=== PATIENT | female | born 1945 | race Caucasian/White ===

== ENCOUNTER 2023-07-24 14:49 | Outpatient (RCR) | payer MEDICARE, OTHER, SELFPAY | END 2023-07-24 23:59 | disposition home or self-care (01) | LOC: RPT 14:49 | PROVIDERS: ATTENDING PHYSICIAN Specialist; FAMILY PHYSICIAN Internal Medicine | DX: Z47.1 Aftercare following joint replacement surgery (principal); Z73.6 Limitation of activities due to disability; M62.81 Muscle weakness (generalized); M25.512 Pain in left shoulder; Z96.612 Presence of left artificial shoulder joint | CPT/HCPCS: 97010; 97110; 97162 ==

== ENCOUNTER 2023-08-21 13:53 | Outpatient (RCR) | payer MEDICARE, OTHER, SELFPAY | END 2023-08-21 23:59 | disposition home or self-care (01) | LOC: RPT 13:53 | PROVIDERS: ATTENDING PHYSICIAN Specialist; FAMILY PHYSICIAN Internal Medicine | DX: Z47.1 Aftercare following joint replacement surgery (principal); Z73.6 Limitation of activities due to disability; M62.81 Muscle weakness (generalized); M25.512 Pain in left shoulder; Z96.612 Presence of left artificial shoulder joint | CPT/HCPCS: 97010; 97110; 97140 ==

== ENCOUNTER 2023-08-28 12:54 | Outpatient (RCR) | payer MEDICARE, OTHER, SELFPAY | END 2023-09-12 08:34 | disposition home or self-care (01) | LOC: RPT 12:54 | PROVIDERS: ATTENDING PHYSICIAN Specialist; FAMILY PHYSICIAN Internal Medicine | DX: Z47.1 Aftercare following joint replacement surgery (principal); Z96.612 Presence of left artificial shoulder joint; Z73.6 Limitation of activities due to disability | CPT/HCPCS: 97010; 97110 ==

== ENCOUNTER 2024-01-22 06:32 | Outpatient (RCR) | payer MEDICARE, OTHER, SELFPAY | END 2024-01-22 23:59 | disposition home or self-care (01) | LOC: RPT 06:32 | PROVIDERS: ATTENDING PHYSICIAN Physical Medicine & Rehabilitation; FAMILY PHYSICIAN Internal Medicine | DX: M54.16 Radiculopathy, lumbar region (principal); M62.81 Muscle weakness (generalized); R26.2 Difficulty in walking, not elsewhere classified | CPT/HCPCS: 97162 ==

== ENCOUNTER → 2024-02-05 08:56 | Outpatient (REF) | payer MEDICARE, OTHER, SELFPAY ==
[2024-02-05 09:27] LABS: % Basophils 0.9 % (0-2); % Eosinophils 3.1 % (0-6); % Immature Granulocytes 0.3 % (0-0.5); % Lymphocytes 21.4 % (20.5-51.1); % Monocytes 8.2 % (1.7-9.3); % Neutrophils 66.1 % (42.2-75.2); Absolute Basophils 0.1 10^3/uL (0-0.2); Absolute Eosinophils 0.2 10^3/uL (0-0.7); Absolute Lymphocytes 1.7 10^3/uL (1.2-3.4); Absolute Monocytes 0.6 10^3/uL (0.1-0.6); Absolute Neutrophils 5.2 10^3/uL (1.4-6.5); Hematocrit 37.9 % (37.0-47.0); Hemoglobin 12.5 g/dL (12.0-16.0); Mean Corpuscular Hgb 29.4 pg (27.0-31.0); Mean Corpuscular Volume 89.2 fL (81.0-99.0); Mean Platelet Volume 10.1 fL (7.4-10.4); Nucleated Red Blood Cells % 0 %; Platelet Count 242 10^3/uL (130-400); Red Blood Cell Count 4.25 10^6/uL (4.20-5.40); Red Cell Dist. Width 12.9 % (11.5-14.5); White Blood Cell Count 7.8 10^3/uL (4.8-10.8)
[2024-02-05 10:45] LABS: ALT (SGPT) 18 U/L (0-35); AST (SGOT) 23 U/L (14-36); Albumin 3.8 g/dl (3.5-5.0); Alkaline Phosphatase 79 U/L (38-126); Blood Urea Nitrogen 16 mg/dl (7-17); Calcium 9.9 mg/dl (8.4-10.2); Carbon Dioxide 31 mmol/L (22-30); Chloride 102 mmol/L (98-107); Glucose 105 mg/dl (70-99); HDL Cholesterol 40 mg/dl; LDL Cholesterol, Calculated 49 mg/dl; Potassium 4.6 mmol/L (3.5-5.1); Sodium 139 mmol/L (135-145); Total Cholesterol 109 mg/dl (50-199); Total Protein 6.2 g/dl (6.3-8.2); Triglyceride 100 mg/dl (10-149); Very Low Density Lipoprotein 20 mg/dl (0-30); eGFR > 60.00
[2024-02-05 14:24] LABS: Glycohemoglobin (HgbA1c) 6.4 % (4.0-5.6)
== END ==
LOC: REG 08:56
PROVIDERS: ATTENDING PHYSICIAN Family Medicine
DX: R42 Dizziness and giddiness (principal); R73.01 Impaired fasting glucose; E78.2 Mixed hyperlipidemia
CPT/HCPCS: 36415; 80053; 80061; 83036; 85025

== ENCOUNTER 2024-02-20 13:55 | Outpatient (RCR) | payer MEDICARE, OTHER, SELFPAY | END 2024-02-20 23:59 | disposition home or self-care (01) | LOC: RPT 13:55 | PROVIDERS: ATTENDING PHYSICIAN Physical Medicine & Rehabilitation; FAMILY PHYSICIAN Internal Medicine | DX: M54.16 Radiculopathy, lumbar region (principal); M62.81 Muscle weakness (generalized); R26.2 Difficulty in walking, not elsewhere classified; Z73.6 Limitation of activities due to disability | CPT/HCPCS: 97110; 97112; 97530 ==

== ENCOUNTER 2024-03-19 14:22 | Outpatient (RCR) | payer MEDICARE, OTHER, SELFPAY | END 2024-03-19 23:59 | disposition home or self-care (01) | LOC: RPT 14:22 | PROVIDERS: ATTENDING PHYSICIAN Physical Medicine & Rehabilitation; FAMILY PHYSICIAN Internal Medicine | DX: M54.16 Radiculopathy, lumbar region (principal); M62.81 Muscle weakness (generalized); R26.2 Difficulty in walking, not elsewhere classified; Z73.6 Limitation of activities due to disability | CPT/HCPCS: 97110; 97530 ==

== ENCOUNTER 2024-04-23 12:49 | Outpatient (RCR) | payer MEDICARE, OTHER, SELFPAY | END 2024-04-23 23:59 | disposition home or self-care (01) | LOC: RPT 12:49 | PROVIDERS: ATTENDING PHYSICIAN Physical Medicine & Rehabilitation | DX: M54.16 Radiculopathy, lumbar region (principal); M62.81 Muscle weakness (generalized); R26.2 Difficulty in walking, not elsewhere classified; Z73.6 Limitation of activities due to disability | CPT/HCPCS: 97110; 97530 ==

== ENCOUNTER → 2024-05-19 12:50 | Outpatient (REF) | payer MEDICARE, OTHER, SELFPAY | LOC: RCS 12:50 | PROVIDERS: ATTENDING PHYSICIAN Internal Medicine Cardiovascular Disease; FAMILY PHYSICIAN Family Medicine | DX: I42.9 Cardiomyopathy, unspecified (principal) | CPT/HCPCS: 93306 ==

== ENCOUNTER 2024-05-20 15:51 | Outpatient (RCR) | payer MEDICARE, OTHER, SELFPAY | END 2024-05-20 23:59 | disposition home or self-care (01) | LOC: RPT 15:51 | PROVIDERS: ATTENDING PHYSICIAN Physical Medicine & Rehabilitation | DX: M54.16 Radiculopathy, lumbar region (principal); M62.81 Muscle weakness (generalized); R26.2 Difficulty in walking, not elsewhere classified; Z73.6 Limitation of activities due to disability | CPT/HCPCS: 97110; 97530 ==

== ENCOUNTER 2024-06-11 13:52 | Outpatient (RCR) | payer MEDICARE, OTHER, SELFPAY | END 2024-06-12 09:24 | disposition home or self-care (01) | LOC: RPT 13:52 | PROVIDERS: ATTENDING PHYSICIAN Physical Medicine & Rehabilitation | DX: M54.16 Radiculopathy, lumbar region (principal); M62.81 Muscle weakness (generalized); R26.2 Difficulty in walking, not elsewhere classified; Z73.6 Limitation of activities due to disability | CPT/HCPCS: 97110; 97530 ==

== ENCOUNTER → 2024-10-29 09:56 | Outpatient (REF) | payer MEDICARE, OTHER, SELFPAY | LOC: HWWDC 09:56 | PROVIDERS: ATTENDING PHYSICIAN Family Medicine | DX: Z13.820 Encounter for screening for osteoporosis (principal); Z78.0 Asymptomatic menopausal state; Z12.31 Encounter for screening mammogram for malignant neoplasm of breast | CPT/HCPCS: 77063; 77067; 77080 ==

== ENCOUNTER → 2024-11-10 09:17 | Outpatient (REF) | payer MEDICARE, OTHER, SELFPAY ==
[2024-11-10 10:19] LABS: % Basophils 0.8 % (0-2); % Eosinophils 3.2 % (0-6); % Immature Granulocytes 0.3 % (0-0.5); % Lymphocytes 19.1 % (20.5-51.1); % Monocytes 7.5 % (1.7-9.3); % Neutrophils 69.1 % (42.2-75.2); Absolute Basophils 0.1 10^3/uL (0-0.2); Absolute Eosinophils 0.3 10^3/uL (0-0.7); Absolute Lymphocytes 1.5 10^3/uL (1.2-3.4); Absolute Monocytes 0.6 10^3/uL (0.1-0.6); Absolute Neutrophils 5.4 10^3/uL (1.4-6.5); Hematocrit 41.3 % (37.0-47.0); Hemoglobin 13.3 g/dL (12.0-16.0); Mean Corp Hgb Conc. 32.2 g/dL (33.0-37.0); Mean Corpuscular Hgb 29.4 pg (27.0-31.0); Mean Corpuscular Volume 91.2 fL (81.0-99.0); Mean Platelet Volume 9.9 fL (7.4-10.4); Nucleated Red Blood Cells % 0 %; Platelet Count 209 10^3/uL (130-400); Red Blood Cell Count 4.53 10^6/uL (4.20-5.40); Red Cell Dist. Width 13.2 % (11.5-14.5); White Blood Cell Count 7.9 10^3/uL (4.8-10.8)
[2024-11-10 10:50] LABS: ALT (SGPT) 19 U/L (0-35); AST (SGOT) 20 U/L (14-36); Albumin 3.9 g/dl (3.5-5.0); Alkaline Phosphatase 84 U/L (38-126); Blood Urea Nitrogen 16 mg/dl (7-17); Calcium 9.6 mg/dl (8.4-10.2); Carbon Dioxide 36 mmol/L (22-30); Chloride 103 mmol/L (98-107); Glucose 112 mg/dl (70-99); HDL Cholesterol 44 mg/dl; Iron 77 ug/dl (37-170); LDL Cholesterol, Calculated 38 mg/dl; Potassium 4.2 mmol/L (3.5-5.1); Sodium 142 mmol/L (135-145); Total Bilirubin 0.9 mg/dl (0.2-1.3); Total Cholesterol 103 mg/dl (50-199); Total Protein 6.8 g/dl (6.3-8.2); Triglyceride 106 mg/dl (10-149); Very Low Density Lipoprotein 21 mg/dl (0-30); eGFR > 60.00
[2024-11-10 11:01] LABS: Glycohemoglobin (HgbA1c) 6.6 % (4.0-5.6)
[2024-11-10 11:17] LABS: TSH Reflex To Free T4 1.33 uIU/ml (0.47-4.68)
[2024-11-12 05:23] LABS: Transferrin 238 mg/dL (200-360)
== END ==
LOC: REG 09:17
PROVIDERS: ATTENDING PHYSICIAN Psychiatry & Neurology Neurology; FAMILY PHYSICIAN Family Medicine
DX: G25.81 Restless legs syndrome (principal); R73.01 Impaired fasting glucose; E78.2 Mixed hyperlipidemia; R53.83 Other fatigue; Z13.29 Encounter for screening for other suspected endocrine disorder; E78.5 Hyperlipidemia, unspecified; E66.9 Obesity, unspecified
CPT/HCPCS: 36415; 80053; 80061; 83036; 83540; 84443; 84466; 85025

== ENCOUNTER 2024-12-17 15:38 | Outpatient (RCR) | payer MEDICARE, OTHER, SELFPAY | END 2024-12-17 23:59 | disposition home or self-care (01) | LOC: RPT 15:38 | PROVIDERS: ATTENDING PHYSICIAN Family Medicine | DX: M54.16 Radiculopathy, lumbar region (principal); R26.9 Unspecified abnormalities of gait and mobility; Z73.6 Limitation of activities due to disability | CPT/HCPCS: 97110; 97162; 97530 ==

== ENCOUNTER 2025-01-21 09:53 | Outpatient (RCR) | payer MEDICARE, OTHER, SELFPAY | END 2025-01-21 23:59 | disposition home or self-care (01) | LOC: RPT 09:53 | PROVIDERS: ATTENDING PHYSICIAN Family Medicine | DX: M54.16 Radiculopathy, lumbar region (principal); R26.9 Unspecified abnormalities of gait and mobility; Z73.6 Limitation of activities due to disability; R26.2 Difficulty in walking, not elsewhere classified | CPT/HCPCS: 97110; 97530 ==

== ENCOUNTER 2025-02-09 10:32 | Outpatient (RCR) | payer MEDICARE, OTHER, SELFPAY | END 2025-02-09 23:59 | disposition home or self-care (01) | LOC: RPT 10:32 | PROVIDERS: ATTENDING PHYSICIAN Family Medicine | DX: R26.9 Unspecified abnormalities of gait and mobility; Z73.6 Limitation of activities due to disability; M54.16 Radiculopathy, lumbar region; R26.2 Difficulty in walking, not elsewhere classified | CPT/HCPCS: 97110 ==

== ENCOUNTER 2025-04-20 23:55 | Emergency (ER) | payer MEDICARE, OTHER, SELFPAY ==
[2025-04-20 23:57] VITALS: BMI 26.8
--- NOTE | 2025-04-21 00:01 | ED.GENMED ---
History of Present Illness
General
Chief Complaint: Fall
Time Seen by Provider: 04/21/25 00:01
History of Present Illness
History of Present Illness:
FOCUSED PAST MEDICAL HISTORY
- A-fib on Eliquis
REVIEW OF OLD RECORDS
- I reviewed records, the patient is been receiving physical therapy for lumbar radiculopathy over this past year
Note:
CHIEF COMPLAINT(S)
Fall with subsequent pain in the leg.
HISTORY OF PRESENT ILLNESS
The patient is an 80-year-old female who presented after sustaining a fall. The fall occurred as a result of tripping over a rug in her home. She is currently on apixaban (Eliquis) and a low-dose aspirin regimen, which increases her risk of
bleeding. Following the fall, the patient reports significant pain in her leg, specifically when pressure is applied directly over the bone. There is notable bruising which is likely due to subcutaneous hemorrhage. The patient describes the pain as
moderate, noting that while she was able to stand initially, the pain worsened over time. The patient took acetaminophen and oxycodone, which she uses for restless leg syndrome. She denies any head injury or pain in the hip, abdomen, or chest after
the fall. The patient is noted to be in permanent atrial fibrillation and mentions a consideration for an ablation procedure in the past.
PAST MEDICAL AND SURIGICAL HISTORY
The patient has a history of atrial fibrillation.
MEDICATIONS
The patient is currently taking apixaban (Eliquis), low-dose aspirin, acetaminophen, and oxycodone.
PHYSICAL EXAM
General: Alert, no acute distress.
Skin: Warm, dry.
Head: Normocephalic, atraumatic. No evidence of craniofacial trauma
Neck: Supple, trachea midline.
Eye Ears, nose, mouth and throat: Oral mucosa moist.
Cardiovascular: Normal peripheral perfusion, No edema.
Respiratory: Respirations are non-labored.
Gastrointestinal: Abdomen nondistended
Back: Normal range of motion, Normal alignment.
Musculoskeletal: There is rather large area of hematoma distal to the knee anterolateral left leg, strong DP pulse, good distal perfusion, some mild mid shaft left tibia tenderness
Neurological: Alert and oriented to person, place, time, and situation, No focal neurological deficit observed.
Psychiatric: Cooperative, appropriate mood & affect.
PROBLEM LIST
Acute Problems:
- Fall with subsequent leg pain and bruising.
- Subcutaneous hemorrhage secondary to anticoagulation therapy.
Chronic Problems:
- Atrial fibrillation.
PLAN
1. Obtain an X-ray to assess for any potential bone damage in the leg.
2. Continue acetaminophen as needed for pain management.
3. Advise the patient to keep the leg elevated when possible to reduce swelling and pain.
4. Reassess after imaging to determine any further necessary interventions.
DIFFERENTIAL DIAGNOSIS
The Differential Diagnosis includes, in no particular order and is not limited to:
1. Soft tissue contusion
2. Fracture
3. Deep vein thrombosis
4. Compartment syndrome
5. Hematoma
6. Ligamentous injury
7. Muscle strain
8. Joint dislocation
9. Peripheral nerve injury
10. Stress fracture
RADIOLOGY
- X-ray shows DJD, soft tissue swelling, vascular calcification
UPDATE
-SUMMARY OF ENCOUNTER
The patient presented to the emergency department following a fall that resulted in significant leg pain and bruising. An X-ray was conducted, revealing vascular calcifications, soft tissue swelling, and mild to moderate degenerative joint disease.
Given the patient�s anticoagulant regimen, there was heightened concern for potential hemorrhagic complications, necessitating careful evaluation and management.
PLAN
1. The patient is advised to hold the next doses of apixaban (Eliquis) and aspirin to reduce the risk of further bleeding.
2. The patient is recommended to keep the leg elevated to help with swelling.
3. Pain is to be managed with acetaminophen as needed.
PATIENT EDUCATION AND COUNSELING
The patient was counseled on holding her anticoagulation therapy temporarily and monitoring for signs of increased swelling or pain. She was informed about the findings of degenerative joint disease on the X-ray and advised on appropriate mobility
support.
MEDICATION RECONCILIATION
- Prescription to hold apixaban (Eliquis) and aspirin temporarily.
MEDICAL DECISION MAKING
-Complexity of Data Reviewed: Chronic conditions affecting care such as atrial fibrillation and currently addressed conditions include subcutaneous hemorrhage secondary to anticoagulation therapy and acute leg pain. Differential diagnoses considered
include soft tissue contusion, fracture, deep vein thrombosis, compartment syndrome, hematoma, ligamentous injury, muscle strain, joint dislocation, peripheral nerve injury, and stress fracture.
-Data:
Category 1
The following testing was considered and performed: X-ray of the leg was done.
Category 2
My independent interpretation of the X-ray indicates vascular calcifications, soft tissue swelling, and mild to moderate degenerative joint disease.
-Risk: Consideration of admission/observation was undertaken, but given that the patient has several ambulatory assistance devices at home, she is considered safe for outpatient management with the advised precautions.
DIAGNOSIS
1. Subcutaneous hemorrhage secondary to anticoagulation therapy (ICD-10: R58).
2. Degenerative joint disease (ICD-10: M15.9).
3. Fall-related injury (ICD-10: W19.XXXA).
Past History
Past History
ED Past Medical History: Arrthythmia, CAD, CHF, GERD, HTN and Hypercholesterolemia
ED Past Surgical History: Cardiac
Social History
Tobacco: Non-smoker
Alcohol: Daily
Personal: Single
Living: alone
Employment: Retired
Family History
Family History: Hypertension
Phy Exam
Physical Exam
Physical Exam:
See HPI
Course
Orders/Labs/Results
Orders:
Orders
04/21/25 00:09
CR Leg Tibia/fibula Left 2 Vw Urgent
Comment:
Reason For Exam: trauma hematoma eliquis
Vital Signs
Initial and Last Documented VS:
Initial Vital Signs
Temp
36.5 C
04/21/25 00:00
Last Documented Vital Signs
Temp Pulse Resp BP Pulse Ox
36.5 C 103 16 124/100 97
04/21/25 00:00 04/21/25 00:08 04/21/25 00:08 04/21/25 00:08 04/21/25 00:08
*Pulse Oximetry
Patient hypoxic: no
*Critical Care Note
Total Time (30-74mins, 75-104mins- exclusive of procedures): Not Applicable
ED Attending Note
-
Portions of this chart may have been created with voice recognition software.� Occasional wrong word or��sound alike� substitutions may have occurred due to the inherent limitations of voice recognition software.
Discharge Plan
Departure
Patient Disposition: Home (Routine Discharge)
Date of Disposition: 04/21/25
Time of Disposition: 00:40
Patient with high blood pressure during this ER visit?: Yes
Discharge Problem:
Hematoma of left lower leg
Instructions: Preventing falls in adults, BLOOD PRESSURE, Hematoma
Prescriptions:
No Action
PreserVision AREDS-2 1 EACH capsule
1 cap PO BID
Patient Comments:
08/16/20 - pt attempted to take her medications but vomited right after
atorvastatin 40 MG tablet
40 mg PO HS
Patient Comments:
08/16/20 - pt attempted to take her medications but vomited right after
cholecalciferol (vitamin D3) 1,000 UNITS tablet
2,000 units PO HS
Eliquis 5 MG tablet
5 mg PO BID
Patient Comments:
08/16/20 - pt attempted to take her medications but vomited right after
cyanocobalamin (vitamin B-12) 1,000 MCG tablet
1,000 mcg PO DAILY
Patient Comments:
08/16/20 - pt attempted to take her medications but vomited right after
aspirin 81 MG tablet,delayed release (DR/EC)
81 mg PO DAILY
omeprazole magnesium [Prilosec OTC] 20 MG tablet,delayed release (DR/EC)
20 mg PO DAILY PRN (Reason: Gastrointestinal issue)
pyridoxine (vitamin B6) [Vitamin B-6] 100 mg Tablet
100 mg PO DAILY
magnesium 200 mg Tablet
400 mg PO QPM
metoprolol succinate 100 MG tablet extended release 24 hr
100 mg PO QPM
Digoxin [Lanoxin:] 125 MCG Tablet
125 mcg PO DAILY
loratadine 10 mg Tablet
10 mg PO DAILY PRN (Reason: Rhinitis)
Zyrtec 10 mg Capsule
10 mg PO DAILY PRN (Reason: Rhinitits)
pramipexole 0.125 mg Tablet
0.125 mg PO HS
mupirocin 2 % ointment
1 applic intranasal BID Qty: 1 0RF
docusate sodium 100 mg Capsule
100 mg PO BID Qty: 30 0RF
Eliquis 2.5 mg Tablet
2.5 mg PO BID Qty: 3 0RF
Rx Instructions:
Cut 5 mg tab in 06/25 (= 2.5 mg) and take twice daily from 05/11 PM to 05/12 PM.
Can resume 5 mg twice a day on 11 AM.
gabapentin 100 mg Capsule
200 mg PO TID Qty: 30 0RF
oxycodone [OxyContin] 10 mg Tablet,Oral Only,Ext.Rel.12 Hr
10 mg PO Q12 Qty: 15 0RF
Rx Instructions:
Take every 12 hours x5 days, then once daily x5 days, then STOP.
Dx acute on chronic pain.
sennosides [Senna Lax] 8.6 mg Tablet
17.2 mg PO BID Qty: 30 0RF
ondansetron HCl 4 mg tablet
4 mg PO Q6H PRN (Reason: nausea and vomiting) Qty: 30 0RF
prednisone 10 mg tablet
40 mg PO TAPER Qty: 20 0RF
Rx Instructions:
4 TABS X 2 DAYS, 3 TABS X 2 DAYS, 2 TABS X 2 DAYS, 1 TAB X 2 DAYS, THEN STOP
acetaminophen [Tylenol Extra Strength] 500 MG tablet
1,000 mg PO Q6H Qty: 0 0RF
Rx Instructions:
DO NOT exceed >4000 mg daily.
bumetanide 0.5 mg Tablet
0.5 - 1 mg PO DAILY PRN (Reason: edema) Qty: 0 0RF
Rx Instructions:
HOLD IF systolic blood pressure <130 while on Oxycodone and Oxycontin.
losartan 25 mg Tablet
25 mg PO DAILY Qty: 0 0RF
Rx Instructions:
HOLD IF systolic blood pressure <130 while on Oxycodone and Oxycontin.
cyclosporine [Restasis] 0.05 % Dropperette
1 drp BOTH EYES DAILYPRN PRN (Reason: dry eyes) Qty: 0 0RF
oxycodone 10 mg Tablet
5 - 10 mg PO Q4HPRN PRN (Reason: moderate-severe pain) Qty: 84 0RF
Patient Comments:
QID and increased also to 6x/day
Rx Instructions:
1/2 tab for moderate pain, 1 if severe.
Dx total joint.
Referrals:
Luis Daniel Watt Jr., DO [Family Provider, Internal Medicine]
Rodney Simmons MD [Active, Orthopedics]
Activity Restrictions/Additional Instructions:
I recommend to hold the Eliquis and aspirin tonight and tomorrow morning. Follow-up with your doctors. You currently have a normal strong pulse in your foot. I see no sign of fracture but the radiologist will read the x-ray tomorrow. You could
also follow-up with an orthopedist persist.
Interventions
Interventions:
*Risk Screen - Suicide Last Done: 04/21/25 00:08
*General Assessment Last Done: 04/21/25 00:09
*Neglect/Abuse Screening Last Done: 04/21/25 00:08
*ED- Fall Risk Assessment Last Done: 04/21/25 00:07
*ED COVID-19 Vaccine History Last Done: 04/21/25 00:07
*ED Influenza Vaccine History Last Done: 04/21/25 00:07
ED-Musculoskeletal Assessment Last Done: 04/21/25 00:10
ED- Neurological Assessment Last Done: 04/21/25 00:10
ED-Skin Assessment Last Done: 04/21/25 00:10
Discharge Date and Time
Print Language: SPANISH
[2025-04-21 00:08] VITALS: BP 124/100
== END 2025-04-21 01:11 | disposition home or self-care (01) ==
LOC: EMR 23:55
PROVIDERS: EMERGENCY PHYSICIAN Emergency Medicine; FAMILY PHYSICIAN Family Medicine
DX: S80.12XA Contusion of left lower leg, initial encounter (principal); W18.09XA Striking against other object with subsequent fall, initial encounter; Y92.009 Unspecified place in unspecified non-institutional (private) residence as the place of occurrence of the external cause; I48.91 Unspecified atrial fibrillation; I25.10 Atherosclerotic heart disease of native coronary artery without angina pectoris; I11.0 Hypertensive heart disease with heart failure; I50.9 Heart failure, unspecified; E78.00 Pure hypercholesterolemia, unspecified; G25.81 Restless legs syndrome; Z79.01 Long term (current) use of anticoagulants; Z82.49 Family history of ischemic heart disease and other diseases of the circulatory system
CPT/HCPCS: 99283; 73590

== ENCOUNTER → 2025-05-19 10:43 | Outpatient (REF) | payer MEDICARE, OTHER, SELFPAY | LOC: HWRAD 10:43 | PROVIDERS: ATTENDING PHYSICIAN Physician Assistant Surgical; FAMILY PHYSICIAN Family Medicine | DX: M25.552 Pain in left hip (principal) | CPT/HCPCS: 73700 ==

== ENCOUNTER 2025-05-21 16:08 | Inpatient (IN) | payer MEDICARE, OTHER, SELFPAY ==
[2025-05-21] VITALS (12 sets, daily range): BP systolic 97–148; BP diastolic 65–97
--- NOTE | 2025-05-21 13:25 | ED.GENMED ---
History of Present Illness
<JHONY Hartman - Last Filed: 05/21/25 14:48>
General
Chief Complaint: Musculo-Skeletal Complaint
Source: patient
Exam Limitations: none
Time Seen by Provider: 05/21/25 12:54
Nursing documentation reviewed up to this point in time: agreed with
History of Present Illness
History of Present Illness:
Patient is 80-year-old female igor presents to the ER for evaluation. Patient was initially seen April 21 secondary to fall and sustained a hematoma to her left leg. She is anticoagulated on Eliquis for A-fib. She sustained a hematoma to her
left leg but reports she has had continued pain and had an outpatient CAT scan of her left hip 2 days ago. I did review this report which showed an impacted fracture of the left femoral neck. She has been walking with a walker. When she had
outpatient CAT scan she called by orthopedics and instructed to stop her Eliquis. She has not taken Eliquis since Saturday. She has had wound care come sporadically to treat this left lateral leg hematoma.
She completed cephalexin yesterday. She denies any fever chills
Past History
<JHONY Hartman - Last Filed: 05/21/25 14:48>
Past History
ED Past Medical History: Arrthythmia, CAD, CHF, GERD, HTN and Hypercholesterolemia
ED Past Surgical History: Cardiac
Social History
Tobacco: Non-smoker
Alcohol: Daily
Personal: Single
Living: alone
Employment: Retired
Family History
Family History: Hypertension
Phy Exam
<JHONY Hartman - Last Filed: 05/21/25 14:48>
General Physical Exam
General Presentation: no apparent distress
General age: appears stated age
General Skin: warm and dry
General Habitus: elderly
General Mental: alert
General Hydration: appears well hydrated
Cardiovascular Exam
Cardiovascular Exam: irregularly irregular
Pulmonary Exam
Pulmonary Exam: lungs clear and no respiratory distress
Neurological Exam
Neurological Exam: alert and oriented x3
Musculoskeletal Exam
Musculoskeletal Exam: other (Strong pulses left lower extremity left lateral lower leg with open wound/hematoma mild surrounding erythema strong pulses pain with range of motion to left leg)
Skin Exam
Skin Exam: normal color and warm/dry
Psychiatric Exam
Psychiatric Exam: normal mood/affect
Course
<JHONY Hartman - Last Filed: 05/21/25 14:48>
Orders/Labs/Results
Orders:
Orders
05/21/25 13:37
Cardiac Monitoring- Treatment ONCE
IV Insert/Care/Rem.- Treatment PRN
0.9% Sodium Chloride 250 ml [Nss] 250 ml IV BOLUS
05/21/25 13:39
Electrocardiogram (*1) Stat
Reason for Study: Abdominal Pain
EKG- Treatment ONCE
05/21/25 13:40
Morphine Sulfate 2 mg IV NOW STA
05/21/25 13:41
Knee, Left 4 or More Views [CR Knee - Left 4 Or More View*] Urgent
Comment:
Reason For Exam: trauma pain
05/21/25 13:54
Complete Blood Count/With Diff Urgent
Comprehensive Metabolic Panel Urgent
05/21/25 14:25
Fentanyl Citrate/Pf [Sublimaze] 25 mcg IV [id number] PRN
HYDROmorphone [Dilaudid] 0.25 mg IV PACU-[id number] PRN
Morphine Sulfate 1 mg IV PACU-Q5MPRN PRN
Ondansetron Injectable [Zofran] 4 mg IV PACU-ONCEPRN PRN
Prochlorperazine [Compazine] 5 mg IV PACU-ONCEPRN PRN
Notify MD As Directed
Notify physician if: for SDS patients with known or suspected sleep obstructive sleep apnea, monitor in the
PACU.
Notify MD for any apneic/desaturation episodes
O2 Therapy [RESP] Urgent
Titrate/Wean O2 to maintain O2 sat greater than (%): 92
Special Instructions: -Provide supplemental oxygen to achieve O2 sat of 92% or greater.
-After 15 min, may wean O2 and discontinue if patient is able to maintain O2 sat of 92%
or greater during recovery period.
If patient is a discharge home, without oxygen therapy, notify anestheiologist if
unable to maintain O2 SAT of 92% or greater on room air for MD clearance.
05/21/25 14:26
Type And Crossmatch [Type+Screen] Urgent
05/21/25 14:30
Normosol (Mult Electrolytes) [Normosol-R/Plasmalyte-A] 1,000 ml IV PER PROTOCOL
Abnormal Lab Results
05/21/25
13:54
RBC 3.54 L 10^6/uL
(4.20-5.40)
Hgb 10.3 L g/dL
(12.0-16.0)
Hct 32.4 L %
(37.0-47.0)
MCHC 31.8 L g/dL
(33.0-37.0)
Lymphocytes % 16.3 L %
(20.5-51.1)
Sodium 132 L mmol/L
(135-145)
Carbon Dioxide 34 H mmol/L
(22-30)
BUN 20 H mg/dl
(7-17)
Glucose 115 H mg/dl
(70-99)
05/21/25 13:54
05/21/25 13:54
Vital Signs
Initial and Last Documented VS:
Initial Vital Signs
Temp Pulse Resp BP Pulse Ox
97.4 F 75 16 97/65 99
05/21/25 10:54 05/21/25 10:54 05/21/25 10:54 05/21/25 10:54 05/21/25 10:54
Last Documented Vital Signs
Temp Pulse Resp BP Pulse Ox
97.4 F 87 11 127/97 95
05/21/25 10:54 05/21/25 14:00 05/21/25 14:00 05/21/25 14:00 05/21/25 14:00
Press Cleaner consulted with Physician
Press Cleaner consulted with physician?: Yes
Name of Physician Consulted: lindsay
<Dolores Velasco MD - Last Filed: 05/21/25 14:32>
Orders/Labs/Results
Orders:
Orders
05/21/25 13:37
Cardiac Monitoring- Treatment ONCE
IV Insert/Care/Rem.- Treatment PRN
0.9% Sodium Chloride 250 ml [Nss] 250 ml IV BOLUS
05/21/25 13:39
Electrocardiogram (*1) Stat
Reason for Study: Abdominal Pain
EKG- Treatment ONCE
05/21/25 13:40
Morphine Sulfate 2 mg IV NOW STA
05/21/25 13:41
Knee, Left 4 or More Views [CR Knee - Left 4 Or More View*] Urgent
Comment:
Reason For Exam: trauma pain
05/21/25 13:54
Complete Blood Count/With Diff Urgent
Comprehensive Metabolic Panel Urgent
05/21/25 14:25
Fentanyl Citrate/Pf [Sublimaze] 25 mcg IV [id number] PRN
HYDROmorphone [Dilaudid] 0.25 mg IV PACU-Q5MPRN PRN
Morphine Sulfate 1 mg IV PACU-Q5MPRN PRN
Ondansetron Injectable [Zofran] 4 mg IV PACU-ONCEPRN PRN
Prochlorperazine [Compazine] 5 mg IV PACU-ONCEPRN PRN
Notify MD As Directed
Notify physician if: for SDS patients with known or suspected sleep obstructive sleep apnea, monitor in the
PACU.
Notify MD for any apneic/desaturation episodes
O2 Therapy [RESP] Urgent
Titrate/Wean O2 to maintain O2 sat greater than (%): 92
Special Instructions: -Provide supplemental oxygen to achieve O2 sat of 92% or greater.
-After 15 min, may wean O2 and discontinue if patient is able to maintain O2 sat of 92%
or greater during recovery period.
If patient is a discharge home, without oxygen therapy, notify anestheiologist if
unable to maintain O2 SAT of 92% or greater on room air for MD clearance.
05/21/25 14:26
Type And Crossmatch [Type+Screen] Urgent
05/21/25 14:30
Normosol (Mult Electrolytes) [Normosol-R/Plasmalyte-A] 1,000 ml IV PER PROTOCOL
Abnormal Lab Results
05/21/25
13:54
RBC 3.54 L 10^6/uL
(4.20-5.40)
Hgb 10.3 L g/dL
(12.0-16.0)
Hct 32.4 L %
(37.0-47.0)
MCHC 31.8 L g/dL
(33.0-37.0)
Lymphocytes % 16.3 L %
(20.5-51.1)
Sodium 132 L mmol/L
(135-145)
Carbon Dioxide 34 H mmol/L
(22-30)
BUN 20 H mg/dl
(7-17)
Glucose 115 H mg/dl
(70-99)
05/21/25 13:54
05/21/25 13:54
Vital Signs
Initial and Last Documented VS:
Initial Vital Signs
Temp Pulse Resp BP Pulse Ox
97.4 F 75 16 97/65 99
05/21/25 10:54 05/21/25 10:54 05/21/25 10:54 05/21/25 10:54 05/21/25 10:54
Last Documented Vital Signs
Temp Pulse Resp BP Pulse Ox
97.4 F 87 11 127/97 95
05/21/25 10:54 05/21/25 14:00 05/21/25 14:00 05/21/25 14:00 05/21/25 14:00
<JHONY Hartman - Last Filed: 05/21/25 14:48>
MDM/Problems Addressed
Differential Diagnosis Includes:
not limited to: hip fracture, hematoma
MDM/Problems Addressed:
Patient is a 80-year-old female who fell April 21 has known left lateral leg hematoma on Eliquis. She had outpatient hip CT which showed a left femoral neck fracture. Orthopedic Dr. Simmons made aware. He is planning on taking patient to the OR
today. Patient stopped Eliquis on Saturday 2 days ago. She has an open wound which was a hematoma to her left lateral leg. She recently completed Keflex yesterday. Her left lower leg is mildly swollen mildly red however no fever normal white
count we will hold off on any additional antibiotics. Patient mid to the hospital service. Patient was medicated for pain
Chronic conditions affecting care:
A-fib on Eliquis
<JHONY Hartman - Last Filed: 05/21/25 14:48>
*Radiology
Radiology exam reviewed: radiology read reviewed (Outpatient CAT scan reviewed by myself)
*Pulse Oximetry
SaO2: 99
Oxygen Mode of Delivery: Room air
Patient hypoxic: no
*EKG
Interpreted by ED Provider?: Yes
Heart Rate: 80
Rate: normal
Rhythm: a-fib
Ischemia: non-specific ST changes
*Critical Care Note
Total Time (30-74mins, 75-104mins- exclusive of procedures): Not Applicable
<JHONY Hartman - Last Filed: 05/21/25 14:48>
Patient Management
Discussion with other providers: Dental Receptionist (ortho DR Simmons )
ED Attending Note
<JHONY Hartman - Last Filed: 05/21/25 14:48>
-
Portions of this chart may have been created with voice recognition software.� Occasional wrong word or��sound alike� substitutions may have occurred due to the inherent limitations of voice recognition software.
<Dolores Velasco MD - Last Filed: 05/21/25 14:32>
ED Attending Note
Patient seen and examined by attending physician: Yes
I performed the substantive portion of visit, reviewed & personally made and approve the management plan that is documented in note by myself or TRAVIS.: Yes
ED Attending Note:
80-year-old female who suffered a fall recently, continues to report left-sided hip pain and had an outpatient CAT scan consistent with hip fracture. Of note, patient also suffered a large hematoma to the lateral aspect of the lower leg on the
left, this has since ruptured and she has a sustained open oozing area with mild surrounding erythema. She has finished recent antibiotics. Ortho has been consulted for management of hip fracture. Pain is well-controlled here in the ED.
Discharge Plan
Departure
Patient Disposition: Admit
Date of Disposition: 05/21/25
Time of Disposition: 14:47
Admit to: Med/Surg
Admit to doctor: hospitalist
Presentation/result/management discussed w/ accepting MD/DO: Hospitalist
Patient with high blood pressure during this ER visit?: Yes
Condition: Fair
Covid-19: Not Applicable
Discharge Problem:
left femoral neck fracture, open wound left lower leg
Prescriptions:
No Action
PreserVision AREDS-2 1 EACH capsule
1 cap PO BID
Patient Comments:
08/16/20 - pt attempted to take her medications but vomited right after
atorvastatin 40 MG tablet
40 mg PO HS
Patient Comments:
08/16/20 - pt attempted to take her medications but vomited right after
cholecalciferol (vitamin D3) 1,000 UNITS tablet
2,000 units PO HS
Eliquis 5 MG tablet
5 mg PO BID
Patient Comments:
08/16/20 - pt attempted to take her medications but vomited right after
cyanocobalamin (vitamin B-12) 1,000 MCG tablet
1,000 mcg PO DAILY
Patient Comments:
08/16/20 - pt attempted to take her medications but vomited right after
aspirin 81 MG tablet,delayed release (DR/EC)
81 mg PO DAILY
omeprazole magnesium [Prilosec OTC] 20 MG tablet,delayed release (DR/EC)
20 mg PO DAILY PRN (Reason: Gastrointestinal issue)
pyridoxine (vitamin B6) [Vitamin B-6] 100 mg Tablet
100 mg PO DAILY
magnesium 200 mg Tablet
400 mg PO QPM
metoprolol succinate 100 MG tablet extended release 24 hr
100 mg PO QPM
Digoxin [Lanoxin:] 125 MCG Tablet
125 mcg PO DAILY
loratadine 10 mg Tablet
10 mg PO DAILY PRN (Reason: Rhinitis)
Zyrtec 10 mg Capsule
10 mg PO DAILY PRN (Reason: Rhinitits)
pramipexole 0.125 mg Tablet
0.125 mg PO HS
mupirocin 2 % ointment
1 applic intranasal BID Qty: 1 0RF
docusate sodium 100 mg Capsule
100 mg PO BID Qty: 30 0RF
Eliquis 2.5 mg Tablet
2.5 mg PO BID Qty: 3 0RF
Rx Instructions:
Cut 5 mg tab in 06/25 (= 2.5 mg) and take twice daily from 05/11 PM to 05/12 PM.
Can resume 5 mg twice a day on 05/13 AM.
gabapentin 100 mg Capsule
200 mg PO TID Qty: 30 0RF
oxycodone [OxyContin] 10 mg Tablet,Oral Only,Ext.Rel.12 Hr
10 mg PO Q12 Qty: 15 0RF
Rx Instructions:
Take every 12 hours x5 days, then once daily x5 days, then STOP.
Dx acute on chronic pain.
sennosides [Senna Lax] 8.6 mg Tablet
17.2 mg PO BID Qty: 30 0RF
ondansetron HCl 4 mg tablet
4 mg PO Q6H PRN (Reason: nausea and vomiting) Qty: 30 0RF
prednisone 10 mg tablet
40 mg PO TAPER Qty: 20 0RF
Rx Instructions:
4 TABS X 2 DAYS, 3 TABS X 2 DAYS, 2 TABS X 2 DAYS, 1 TAB X 2 DAYS, THEN STOP
acetaminophen [Tylenol Extra Strength] 500 MG tablet
1,000 mg PO Q6H Qty: 0 0RF
Rx Instructions:
DO NOT exceed >4000 mg daily.
bumetanide 0.5 mg Tablet
0.5 - 1 mg PO DAILY PRN (Reason: edema) Qty: 0 0RF
Rx Instructions:
HOLD IF systolic blood pressure <130 while on Oxycodone and Oxycontin.
losartan 25 mg Tablet
25 mg PO DAILY Qty: 0 0RF
Rx Instructions:
HOLD IF systolic blood pressure <130 while on Oxycodone and Oxycontin.
cyclosporine [Restasis] 0.05 % Dropperette
1 drp BOTH EYES DAILYPRN PRN (Reason: dry eyes) Qty: 0 0RF
oxycodone 10 mg Tablet
5 - 10 mg PO Q4HPRN PRN (Reason: moderate-severe pain) Qty: 84 0RF
Patient Comments:
QID and increased also to 6x/day
Rx Instructions:
1/2 tab for moderate pain, 1 if severe.
Dx total joint.
Referrals:
Luis Daniel Watt Jr., DO [Family Provider, Internal Medicine]
Interventions
Interventions:
*Risk Screen - Suicide Last Done: 05/21/25 10:54
*General Assessment Last Done: 05/21/25 10:54
*ED- Fall Risk Assessment Last Done: 05/21/25 10:54
ED-Musculoskeletal Assessment Last Done: 05/21/25 12:44
Discharge Date and Time
Print Language: HEBREW
[2025-05-21] MEDS: MORPHINE SULFATE 2 MG IV (13:55)
[2025-05-21] MEDS: NSS 250 IV (13:56)
[2025-05-21 13:59] LABS: Hematocrit 32.4 % (37.0-47.0); Hemoglobin 10.3 g/dL (12.0-16.0); Mean Corp Hgb Conc. 31.8 g/dL (33.0-37.0); Mean Corpuscular Volume 91.5 fL (81.0-99.0); Nucleated Red Blood Cells % 0 %; Platelet Count 328 10^3/uL (130-400); Red Cell Dist. Width 14.0 % (11.5-14.5)
[2025-05-21 14:15] LABS: ALT (SGPT) 16 U/L (0-35); AST (SGOT) 20 U/L (14-36); Albumin 3.5 g/dl (3.5-5.0); Alkaline Phosphatase 73 U/L (38-126); Blood Urea Nitrogen 20 mg/dl (7-17); Calcium 9.0 mg/dl (8.4-10.2); Carbon Dioxide 34 mmol/L (22-30); Chloride 98 mmol/L (98-107); Glucose 115 mg/dl (70-99); Potassium 4.7 mmol/L (3.5-5.1); Sodium 132 mmol/L (135-145); Total Protein 6.5 g/dl (6.3-8.2); eGFR > 60.00
--- NOTE | 2025-05-21 15:45 | HPS.HSE ---
Family Physician
-
Family Physician: Luis Daniel Watt Jr.
Chief Complaint
-
left calf pain
History of Present Illness
80-year-old female past medical history of osteoarthritis, hypertension, hyperlipidemia, multivessel CAD status post PCI of LAD, paroxysmal atrial fibrillation/atrial flutter on Eliquis, ischemic cardiomyopathy, HFpEF, mild to moderate mitral
regurgitation, mild tricuspid regurgitation, obstructive sleep apnea on CPAP, GERD, fatty liver disease, left renal cyst, migraines, vertigo, peripheral neuropathy, restless leg syndrome, multilevel degenerative disease, overactive bladder, melanoma
right shoulder, macular degeneration, retinal detachment status post surgical correction, osteopenia, dry eyes, depression, prediabetes, alcohol use disorder, presenting with continued pain of her left leg. She was initially seen on April 21
secondary to fall and sustained a hematoma of the left leg with a wound with drainage. She was treated with Keflex. She had outpatient CT scan which showed left femoral neck fracture 2 days ago. Patient stopped taking Eliquis 2 days ago.
She also developed pain in her left hip afterwards.
She denies any chest pain or shortness of breath.
She denies alcohol use or smoking.
Medical History
Past Medical History
Past Medical History: Reports Other (osteoarthritis, hypertension, hyperlipidemia, multivessel CAD status post PCI of LAD, paroxysmal atrial fibrillation/atrial flutter on Eliquis, ischemic cardiomyopathy, HFpEF, mild to moderate mitral
regurgitation, mild tricuspid regurgitation, obstructive sleep apnea on CPAP, GERD, fatty liver dise)
Past Surgical History: Reports None
Social History
Tobacco: Non-smoker
Alcohol: None
Drug: None
Family History
Family History: Not pertinent
Allergies / Home Medications
Allergies reflects when Allergies were last updated in [facility].
Home Medications with original date entered in [facility]
Allergy/Medication List:
Allergies
Allergy/AdvReac Type Severity Reaction Status Date / Time
adhesive Allergy itching Verified 05/21/25 11:43
and
swelling
amlodipine (From Norvasc) Allergy Ankle Verified 05/21/25 11:43
Swelling
bacitracin (From Neosporin Allergy Swelling, Verified 05/21/25 11:43
([id number])) Itching,
Redness
empagliflozin (From Allergy Hard Verified 05/21/25 11:43
Jardiance) Swelling
lisinopril Allergy Rash Verified 05/21/25 11:43
neomycin (From Neosporin Allergy Swelling, Verified 05/21/25 11:43
([id number])) Itching,
Redness
polymyxin B (From Neosporin Allergy Swelling, Verified 05/21/25 11:43
([id number])) Itching,
Redness
Sulfa (Sulfonamide Allergy Swelling, Verified 05/21/25 11:43
Antibiotics) Itching,
Redness
Home Medications
vit C 250 mg-vit E 90 mg-zinc 40 mg-copper 1 [id number] capsule (PreserVision AREDS-2) 1 cap PO BID Supplement 04/03/17
atorvastatin 40 mg tablet 40 mg PO HS High cholesterol 02/25/20
cholecalciferol (vitamin D3) 25 mcg (1,000 unit) tablet 2,000 units PO HS Supplement/Bone health 02/25/20
cyanocobalamin (vitamin B-12) 1,000 mcg tablet 2,500 mcg PO DAILY Supplement 08/16/20
aspirin 81 mg tablet,delayed release 81 mg PO DAILY Blood clot prevention/tx 11/26/21
omeprazole magnesium 20 mg tablet,delayed release (Prilosec OTC) 20 mg PO DAILY Gastrointestinal issue 11/26/21
magnesium 200 mg tablet 400 mg PO QPM Supplement 04/11/23
metoprolol succinate 100 mg tablet,extended release 24 hr 100 mg PO QPM Blood Pressure 04/11/23
pyridoxine (vitamin B6) 100 mg tablet (Vitamin B-6) 100 mg PO DAILY Supplement 04/11/23
acetaminophen 500 mg tablet (Tylenol Extra Strength) 1,000 mg (2 x 500 mg) PO Q6H #0 tabs 05/10/23
apixaban 5 mg tablet (Eliquis) 5 mg PO BID Blood Clot Prevention/Tx 05/21/25
bumetanide 0.5 mg tablet 1 mg PO DAILY PRN edema 05/21/25
cetirizine 10 mg tablet (Zyrtec) 10 mg PO DAILY PRN itching/allergies 05/21/25
digoxin 125 mcg (0.125 mg) tablet 125 mcg PO DAILY 05/21/25
metformin 500 mg tablet 500 mg PO QPM Diabetes 05/21/25
oxycodone 10 mg tablet 10 mg PO Q6 restless leg syndrome 05/21/25
sennosides 8.6 mg tablet (Senna Lax) 17.2 mg PO DAILY 05/21/25
Review of Systems
-
History Source: Patient
A 12 point ROS was completed and negative except as noted: Yes
Constitutional: Reports No Symptoms
EENT: Reports No Symptoms
Respiratory: Reports No Symptoms
Cardiac: Reports No Symptoms
Abdomen/GI: Reports No Symptoms
: Reports No Symptoms
Musculoskeletal: Reports No Symptoms
Skin: Reports No Symptoms
Neurological: Reports No Symptoms
Endocrine: Reports No Symptoms
Hematologic/Lymphatic: Reports No Symptoms
Psych: Reports No Symptoms
Physical Exam
Vital Signs
Vital Signs
Temp Pulse Resp BP Pulse Ox
97.4 F 87 11 127/97 95
05/21/25 10:54 05/21/25 14:00 05/21/25 14:00 05/21/25 14:00 05/21/25 14:00
Physical Exam
General: Well Developed, Well Nourished and No Apparent Distress
HEENT: NormoCephalic, Moist mucous membranes and Atraumatic
Respiratory: Clear
Cardiac: S1/S2 and Regular Rhythm; No Murmur or Rub
GI: Soft, Non Tender, Non Distended and Normal Bowel Sounds; No Organomegaly
Rectal: Deferred by Provider
Musculoskeletal: No Clubbing, No Cyanosis and No Edema
Skin: No Rash
Neuro: Nonfocal/grossly intact
Laboratory Results
-
05/21/25 13:54
05/21/25 13:54
Laboratory Results
Total Bilirubin 0.7 mg/dl (0.2-1.3) 05/21/25 13:54
AST 20 U/L (14-36) 05/21/25 13:54
ALT 16 U/L (0-35) 05/21/25 13:54
Alkaline Phosphatase 73 U/L (38-126) 05/21/25 13:54
Data Reviewed
-
Lab Data: Labs Reviewed by me
Old Records: Reviewed
Impression/Plan
-
IMPRESSION:
PLAN:
# Recent hematoma of left lower extremity with wound
# Left femoral neck impacted fracture after a fall
- Continue to hold Eliquis
-Ortho consulted and planning for operating room today
-N.p.o.
- Patient completed Keflex, no further antibiotic
-Continue Tylenol, oxycodone
- Dilaudid for breakthrough pain
- Wound care consulted
- Check left ankle x-ray due to pain
Osteoarthritis
Essential hypertension
- Continue losartan
Hyperlipidemia
Multivessel CAD status post PCI of LAD
- Continue aspirin, statin
Paroxysmal atrial fibrillation/atrial flutter
- Hold Eliquis
- Continue digoxin
- Continue metoprolol
Ischemic cardiomyopathy/HFpEF
- Continue Bumex
Mild to moderate mitral regurgitation
Mild tricuspid regurgitation
Obstructive sleep apnea
- On CPAP
GERD
- Continue omeprazole
Fatty liver disease
Left renal cyst
History of migraines
History of vertigo
Peripheral neuropathy
- Continue pramipexole, gabapentin,
Restless leg syndrome
Multilevel degenerative disease
Overactive bladder
Melanoma right shoulder
Macular degeneration
Retinal detachment status postsurgical correction
Osteopenia
Dry eyes
Depression
Prediabetes
- Hold metformin
History of former alcohol use disorder
Full code
DVT prophylaxis�SCDs
N.p.o.
--- NOTE | 2025-05-21 16:05 | EDCM ---
Reviewed chart and met with pt bedside in ED. Pt lives alone with her dog in 1 story home, [address].
Independent in ADLs, personal care and ambulation at baseline. Has been using RW since fall on April 20. Also has cane, WC, commode, shower chair, grab bars in shower and around toilet.
Current with [facility], she also hired [employer], [employer] was scheduled to come daily but they were having trouble finding daily aides.
Pt has restless leg syndrome, follow with Dr Membreno in Neurology and has a planning specialist who prescribes Oxycodone for her restless legs.
Pt does not have local family, relies on friends and neighbors to assist her and provide transportation.
Confirms prescription coverage.
[facility].
Pt told me she will be having surgery either later today or tomorrow.
PCP: Blair Watt
Pharmacy: [facility]
CM will continue to follow for all discharge planning needs.
[2025-05-21 16:42] LABS: Glucose - Point of Care 90 mg/dl (70-99)
[2025-05-21] MEDS: DILAUDID 0.25 MG IV ×4 (19:19→20:01)
--- NOTE | 2025-05-21 19:24 | W.IMMPOSTOP ---
Surgical Immed Post Op Note
-
Primary Surgeon: Rodney Simmons MD
Assisting Surgeon:
Pre-op Diagnosis: left femoral neck fracture
Post-op Diagnosis: left femoral neck fracture
Procedure Performed: internal fixation left femoral neck
Anesthesia Type: general
Specimen / Cultures: none
Estimated Blood Loss: 25mL
Complications: none apparent
Operative Findings: impacted femoral neck fracture
Implants: Elena 6.5mm cannulated partially threaded screws X3
Operative dictation #: [id number]
[2025-05-21] MEDS: TOPROL XL 100 MG PO (22:27)
[2025-05-21] MEDS: COLACE 100 MG PO (22:28)
[2025-05-21] MEDS: LIPITOR 40 MG PO (22:28)
[2025-05-21] MEDS: OCUVITE SOFTGEL 1 CAP PO (22:28)
[2025-05-21] MEDS: MAGNESIUM OXIDE 400 MG PO (22:28)
[2025-05-21] MEDS: VITAMIN D3 (cholecalciferol) 50 MCG PO (22:29)
[2025-05-21] MEDS: ROXICODONE 10 MG PO (22:30)
[2025-05-21] MEDS: TYLENOL 650 MG PO (22:30)
[2025-05-22] VITALS (12 sets, daily range): BP systolic 84–131; BP diastolic 42–79; PULSE 71–90; O2SAT 99
[2025-05-22] MEDS: TYLENOL 650 MG PO ×2 (02:30→09:16)
[2025-05-22] MEDS: ANCEF 5 IV ×2 (02:30→11:14)
[2025-05-22] MEDS: ROXICODONE 10 MG PO ×4 (02:30→20:46)
[2025-05-22] MEDS: FLUSH (NSS) 2 FLUSH IV ×2 (02:31→06:30)
[2025-05-22] MEDS: DILAUDID 0.25 MG IV ×3 (03:34→06:30)
[2025-05-22] MEDS: FLUSH (NSS) 1 FLUSH IV (05:33)
[2025-05-22 07:29] LABS: Hematocrit 31.9 % (37.0-47.0); Hemoglobin 10.1 g/dL (12.0-16.0); Mean Corp Hgb Conc. 31.7 g/dL (33.0-37.0); Mean Corpuscular Volume 90.6 fL (81.0-99.0); Nucleated Red Blood Cells % 0 %; Platelet Count 324 10^3/uL (130-400); Red Cell Dist. Width 14.0 % (11.5-14.5)
[2025-05-22 07:42] LABS: INR 1.22; PT 15.6 Sec (11.4-14.6)
[2025-05-22 07:43] LABS: APTT 30.7 Sec (23.4-35.0)
[2025-05-22 08:04] LABS: ALT (SGPT) 15 U/L (0-35); AST (SGOT) 20 U/L (14-36); Albumin 3.0 g/dl (3.5-5.0); Alkaline Phosphatase 82 U/L (38-126); Blood Urea Nitrogen 19 mg/dl (7-17); Calcium 8.5 mg/dl (8.4-10.2); Carbon Dioxide 32 mmol/L (22-30); Chloride 97 mmol/L (98-107); Estimated Creatinine Clearance 74 ml/min; Glucose 153 mg/dl (70-99); Potassium 4.9 mmol/L (3.5-5.1); Sodium 131 mmol/L (135-145); Total Protein 5.8 g/dl (6.3-8.2); eGFR > 60.00
[2025-05-22] MEDS: VITAMIN B-6 100 MG PO (08:46)
[2025-05-22] MEDS: PROTONIX 40 MG PO (08:46)
[2025-05-22] MEDS: VITAMIN B-12 2500 MCG PO (08:46)
[2025-05-22] MEDS: SENOKOT 17.2 MG PO (08:46)
[2025-05-22] MEDS: OCUVITE SOFTGEL 1 CAP PO ×2 (08:46→20:46)
[2025-05-22] MEDS: ASPIR LOW (ENTERIC COATED) 81 MG PO (08:46)
[2025-05-22] MEDS: COLACE 100 MG PO ×2 (08:46→20:47)
--- NOTE | 2025-05-22 08:50 | W.PN.HOSP.TC ---
Addendum entered and electronically signed by Ellen De Leon MD 05/22/25 16:12:
SBP 90's, I'll give a small fluid bolus and monitor; 1/2 dose Metop this evening
Original Note:
Today's Communication/Plan
-
pain management (see below)
wound care
PT/OT
appreciate Ortho
Assessment / Plan
Assessment / Plan
MS. Janie Goodrich is a 80 yo woman with hx essential HTN, HLD, CAD s/p PCI, paroxysmal afib/flutter on Eliquis, HFpEF, mild to moderate MR, ER visit 04/21 for left leg pain post fall treated for hematoma (held AC briefly) with outpatient CT
showing left femoral neck fracture. Patient stopped taking Eliquis 2 days ago.
Recent hematoma of left lower extremity with wound
Left femoral neck impacted fracture after a fall
- Continue to hold Eliquis
- appreciate Ortho, s/p internal fixation left femoral neck 05/21
- Patient completed Keflex, no further antibiotic
- Continue Tylenol, oxycodone
- Dilaudid for breakthrough pain
- PT/OT
- MIXER OPERATOR RAW SALT Eliquis resumed
Chronic pain from restless leg syndrome
Opiate Dependence
-patient is on Oxycodone 10mg q 6 hour standing at home
-she has post-op pain - will increase standing dose to 15mg q 6 for the first several days for better pain control
-additional Oxy 5 PRN moderate pain; IV dilaudid PRN severe pain
Left munoz hematoma with residual open wound
-continue prior wound care as noted
-wound care consult in
Essential hypertension
- Continue losartan
Hyperlipidemia
Multivessel CAD status post PCI of LAD
- Continue aspirin, statin
Paroxysmal atrial fibrillation/atrial flutter
- Hold Eliquis
- Continue digoxin
- Continue metoprolol
Ischemic cardiomyopathy/HFpEF
- Continue Bumex
Mild to moderate mitral regurgitation
Mild tricuspid regurgitation
Obstructive sleep apnea
- On CPAP
GERD
- Continue omeprazole
Peripheral neuropathy
- Continue pramipexole, gabapentin,
Prediabetes
- Hold metformin
History of former alcohol use disorder
Full code
DVT prophylaxis� Eliquis
51 minutes spent on patient care
Anticipated Discharge: 24 - 48 hours
Subjective/Interval History
-
Date of Service: May 22, 2025
significant left leg pain overnight
she is opiate dependent
Objective Data
-
Labs:
Laboratory Results
05/22/25
07:04
WBC 9.5
Hgb 10.1 L
Hct 31.9 L
Plt Count 324
PT 15.6 H
INR 1.22
APTT 30.7
Sodium 131 L
Potassium 4.9
Chloride 97 L
Carbon Dioxide 32 H
BUN 19 H
Creatinine 0.6
Glucose 153 H
Calcium 8.5
Total Bilirubin 0.6
AST 20
ALT 15
Alkaline Phosphatase 82
Vital Signs:
Vital Signs
Temp Pulse Resp BP Pulse Ox
97.8 F 102 16 121/79 98
05/22/25 07:00 05/22/25 07:00 05/22/25 07:00 05/22/25 07:00 05/22/25 07:00
I&O
05/21/25 05/22/25 05/23/25
06:59 06:59 06:59
Intake Total 580 / 580
Output Total 600 / 600
Balance -20 / -20
Review of Systems
-
History Source: Patient
All other systems: Reviewed and negative
Physical Exam
-
General: No Apparent Distress and Conversant
HEENT: PERRLA
Respiratory: Clear to Auscultation; Negative Wheezes
Cardiac: Regular Rhythm and S1/S2
GI: Soft and Nontender
Musculoskeletal: Other (left thigh incision c/d/i; left lower leg hematoma with dressing - open wound with oozing, no e/o infection )
Skin: Warm and Dry; Negative Rash
Neuro: AO x 3
Psych: Calm
Data Reviewed
-
Diagnostic Radiology: Report Reviewed by me
Labs: Labs Reviewed by me
[2025-05-22] MEDS: ROXICODONE 5 MG PO ×2 (09:28→23:31)
[2025-05-22 10:39] LABS: Vitamin D, 25-OH*** 32.4 ng/mL (30-80)
--- NOTE | 2025-05-22 11:02 | W.PN.ORTHO ---
Today's Communication / Plan
-
Out of bed.
PT/OT, PWB LLE
Resume eliquis
Pain control per primary
Likely discharge to home pending PT/OT evaluation
Assessment
.
Dressing:
Clean, dry and intact.
Assessment:
Ms. Hernandez is an 80-year-old female postoperative day 1 after internal fixation of a left femoral neck fracture
Plan
.
Activity:
Out of bed.
PT/OT, PWB LLE
Resume eliquis
Pain control per primary
Likely discharge to home pending PT/OT evaluation
Discharge Plan: Home
Subjective
.
.:
Patient resting comfortably. Pain well-controlled after oxycodone dosing increased.
Vital Signs and Labs
.
Vital Signs and Labs:
Lab Results
05/22/25 07:04
05/22/25 07:04
Temp Pulse Resp BP Pulse Ox
97.8 F 102 16 121/79 98
05/22/25 07:00 05/22/25 07:00 05/22/25 07:00 05/22/25 07:00 05/22/25 07:00
PT 15.6 Sec (11.4-14.6) H 05/22/25 07:04
INR 1.22 05/22/25 07:04
Physical Exam
-
Minimal blood noted on dressing
No obvious strikethrough on dressing covering leg hematoma
No pain with logroll of the hip
Able to straight leg raise
Sensation intact in all dermatomes, palpable DP PT pulses
[2025-05-22] MEDS: LANOXIN 125 MCG PO (11:14)
--- NOTE | 2025-05-22 11:33 | CM ---
Chart reviewed; PT recommended SNF when stable for discharge; Attending notified
Met with patient at bedside; discussed PT's SNF recommendation; patient is agreeable; facility options identified; preferences [facility]: [facility], [facility], and [facility]
Plan: Discharge to SNF when medically stable pending bed availability
[2025-05-22] MEDS: TYLENOL 1000 MG PO ×2 (13:56→20:46)
[2025-05-22] MEDS: NSS 250 IV (16:28)
[2025-05-22] MEDS: MAGNESIUM OXIDE 400 MG PO (17:44)
[2025-05-22] MEDS: TOPROL XL PO (18:45)
[2025-05-22] MEDS: VITAMIN D3 (cholecalciferol) 50 MCG PO (20:46)
[2025-05-22] MEDS: LIPITOR 40 MG PO (20:46)
[2025-05-22] MEDS: ELIQUIS 5 MG PO (20:47)
--- NOTE | 2025-05-23 00:32 | W.PN.UPDATE ---
Update Note
Progress Note Update
On the floor speaking to the pt at length about how her oxycodone is ordered. After description it sounds like she takes her as needed medication in a very liberal manner at home. Flexing the hours to Q5H vs. Q6H for her restless leg symptoms.
Discussed our scheduled medication protocol and PRN medication protocols- pt tearful at times- denies surgical pain just RLS symptoms- that at the time of assessment were 'fading and minimal.' Discussed with RN on the floor.
[2025-05-23] MEDS: ROXICODONE 10 MG PO ×4 (03:10→19:29)
[2025-05-23] MEDS: ROXICODONE 5 MG PO (03:59)
--- NOTE | 2025-05-23 05:29 | PTCARENOTE ---
After shift change, once RN had taken over car, Pt requested Oxycodone from RN. RN reviewed the scheduled timing of the oxycodone and other PRN medication. Pt stated that she takes her oxy at home early if needed before the pain of the legs starts.
RN reviewed scheduled timing and PRN intervals. Education was ineffective. Pt began to yell at RN, stating RN did not know how to administer meds. Pt stated that she would like another RN. RN said that that was not an option at this time. Pt stated
that if the RN would not given them, she would just take her own. RN clarified that the pt had oxycodone in her possession, Pt confirmed it. RN requested that they be inventoried and sent down to pharmacy. Pt refused stating that she would not tell
the RN where they were and would not give them to her.
2054: RN automotive fleet supervisor was contacted about pt's refusal to send medication down to the pharmacy. Rn was instructed to call security. Security was called and arrived a the bedside. In the presence of security, pt provided the RN with an unlabeled bottle
with 2 different medications in it. One medication was ID'd as oxy and other was unidentifiable by RN or pharmacy. Medications were logged and walked down to pharmacy.
2254: Pt calls RN in and asks about medication timing. RN reviews the timing of the oxy with the pt. Pt insists that the medication is allowed to be given earlier. Rn reviewed what hospital policy and expectations with medication timing and
administration. After a long discussion where pt became increasingly agitated, yelling a RN, PT requested to speak to provider and have meds adjusted. FIELD SERVICE CONSULTANT sexual assault response coordinator was contacted via TT.
2331: PRN oxy indication was changed to allow for better management of RLS. RN reviewed medication changes with the pt and administered the PRN oxy.
2345: Pt repeated request to speak with a provider. Pt stated that she did not trust that the RN had spoke with the provider. RN reached back out to the FIELD SERVICE CONSULTANT. FIELD SERVICE CONSULTANT came to speak with pt.
0300: RN came to administered schedule oxy to the pt. Pt was lying in the bed askew and feet dangling out. Rn sat the bed up as requested by the pt, so that she could take the pill. Pt took the pill, RN handed the pt the water but pt purposefully
spilled some on her self and then proceeded to spill the rest of the cup on the RN. RN left the room and asked another staff member to help the PT.
0345: This RN returned to the room to assist her off of the commode. Pt stated while sadly whining, 'You hate me, you hate me. Its not even worth it. Im just going to go home and take all my pills.' RN clarified, ' did you just say you would go home
and take all of your pills?'. Pt said nothing. RN addressed the pt again, ' did you just states that you would commit suicide by taking all of your pills?'. Pt snapped back, ' i would never hurt my dog'. Rn restated ' you stated that you want to
kill yourself, Correct?'. Pt relied I would never hurt my dog like that. Rn informed Construction Craft Laborer of pt's statement. Larisa consult placed.
*Late note due to pt care
[2025-05-23 07:00] VITALS: BP 122/59
[2025-05-23] MEDS: TYLENOL 1000 MG PO ×3 (08:34→21:34)
[2025-05-23] MEDS: ASPIR LOW (ENTERIC COATED) 81 MG PO (08:35)
[2025-05-23] MEDS: OCUVITE SOFTGEL 1 CAP PO ×2 (08:35→19:29)
[2025-05-23] MEDS: PROTONIX 40 MG PO (08:35)
[2025-05-23] MEDS: SENOKOT 17.2 MG PO (08:35)
[2025-05-23] MEDS: VITAMIN B-12 2500 MCG PO (08:35)
[2025-05-23] MEDS: ELIQUIS 5 MG PO ×2 (08:36→19:29)
[2025-05-23] MEDS: VITAMIN B-6 100 MG PO (08:36)
[2025-05-23] MEDS: COLACE 100 MG PO ×2 (08:36→19:29)
--- NOTE | 2025-05-23 09:33 | W.PN.HOSP.TC ---
Today's Communication/Plan
-
adjust Oxycodone schedule to more mirror what patient does at home
monitor BP's; 1/2 dose home Metoprolol ordered with hold parameters
Assessment / Plan
Assessment / Plan
MS. Janie Godorich is a 80 yo woman with hx essential HTN, HLD, CAD s/p PCI, paroxysmal afib/flutter on Eliquis, HFpEF, mild to moderate MR, ER visit 04/21 for left leg pain post fall treated for hematoma (held AC briefly) with outpatient CT
showing left femoral neck fracture. Patient stopped taking Eliquis 2 days ago.
Recent hematoma of left lower extremity with wound
Left femoral neck impacted fracture after a fall
- appreciate Ortho, s/p internal fixation left femoral neck 05/21
- Patient completed Keflex, no further antibiotics indicated
- Continue standing Tylenol for pain
- Oxycodone/Dilaudid PRN breakthrough pain (on standing Oxycodone for RLS - see below)
- PT/OT - SNF recommended
- BUSINESS RISK CONSULTANT Eliquis resumed
Restless leg syndrome treated with Oxycodone
Opiate Dependence
-patient is on Oxycodone 10mg at home. She reports that the q6H isn't frequent enough for day time. At home she takes q 5 hours to catch before symptoms begin then with a longer break overnight
-will schedule Oxycodone at 9AM, 2PM, 7PM and MN with additional PRN present if she requires oxycodone prior to the next 9 AM dosing.
Left munoz hematoma with residual open wound
-continue prior wound care as noted
-wound care consult in - to be evaluated on Saturday prior to SNF
Essential hypertension
-1/2 dose BUSINESS RISK CONSULTANT Metoprolol with hold parameters (SBP 90's on 05/22) - monitor BP today and increase Metoprolol dose as able
Hyperlipidemia
Multivessel CAD status post PCI of LAD
- Continue aspirin, statin
Paroxysmal atrial fibrillation/atrial flutter
- BUSINESS RISK CONSULTANT Eliquis resumed
- Continue digoxin
- Continue metoprolol
Ischemic cardiomyopathy/HFpEF
- Continue Bumex
Mild to moderate mitral regurgitation
Mild tricuspid regurgitation
Obstructive sleep apnea
- On CPAP
GERD
- Continue omeprazole
Peripheral neuropathy
- Continue pramipexole, gabapentin,
Prediabetes
- Hold metformin
History of former alcohol use disorder
Full code
DVT prophylaxis� Eliquis
Anticipated Discharge: 24 - 48 hours
Subjective/Interval History
-
Date of Service: May 23, 2025
patient's hip pain is resolved with Tylenol
her RLS discomfort is resolved by Oxycodone but she explains she needs to take Oxycodone before symptoms come on - at home takes q5H while awake then able to sleep through the night
Objective Data
-
Vital Signs:
Vital Signs
Temp Pulse Resp BP Pulse Ox
97.7 F 86 20 122/59 100
05/23/25 07:00 05/23/25 07:00 05/23/25 07:00 05/23/25 07:00 05/23/25 07:00
I&O
05/22/25 05/23/25 05/24/25
06:59 06:59 06:59
Intake Total 580 / 580 1450 / 1450
Output Total 600 / 600 260 / 260
Balance -20 / -20 1190 / 1190
Review of Systems
-
History Source: Patient
All other systems: Reviewed and negative
Physical Exam
-
General: No Apparent Distress and Conversant
HEENT: PERRLA
Respiratory: Clear to Auscultation; Negative Wheezes
Cardiac: Regular Rhythm and S1/S2
GI: Soft and Nontender
Musculoskeletal: Other (left thigh incision c/d/i; left lower leg hematoma with dressing - open wound with oozing, no e/o infection )
Skin: Warm and Dry; Negative Rash
Neuro: AO x 3
Psych: Calm
Data Reviewed
-
Diagnostic Radiology: Report Reviewed by me
Labs: Labs Reviewed by me
--- NOTE | 2025-05-23 09:57 | W.PN.ORTHO ---
Today's Communication / Plan
-
PWB LLE
PT/OT
D/C to SNF when bed available
Rest of management per primary
Assessment
.
Dressing:
Clean, dry and intact.
Assessment:
POD#2 s/p left hip intramedullary fixation
Plan
.
Activity:
Out of bed.
PT/OT
Subjective
.
.:
Patient resting comfortably, asleep in bed. Restless leg syndrome kept patient awake at night, medications adjusted by primary
Vital Signs and Labs
.
Vital Signs and Labs:
Lab Results
05/22/25 07:04
05/22/25 07:04
Temp Pulse Resp BP Pulse Ox
97.7 F 86 20 122/59 100
05/23/25 07:00 05/23/25 07:00 05/23/25 07:00 05/23/25 07:00 05/23/25 07:00
PT 15.6 Sec (11.4-14.6) H 05/22/25 07:04
INR 1.22 05/22/25 07:04
Physical Exam
-
No increased blood on dressing
No erythema or ecchymosis
--- NOTE | 2025-05-23 11:32 | CS.PSYCHR ---
Consult Summary - Psychiatry
-
Pt is an 80yo female with hx of HTN, HLD, CAD, paroxysmal Afib/flutter on Eliquis, HFpEF, mild to moderate MR. Pt had an ER visit 04/21/25 for left leg pain post fall treated for hematoma. Outpatient CT showed left femoral neck fracture. Pt S/P
surgical intervention 05/21/25. Psychiatry asked to evaluate after issues overnight. Pt has severe RLS, states oxycodone is the only med that has been effective, and she needs to get it on a regular schedule. Sees a Neurologist, has tried several
alternatives without relief. Pt had RLS overnight, was in distress and feels she was 'scolded'. Pt found to have her own supply of oxycodone pills. She states the nurse human resources compliance manager and security vehicle patrol officer were helpful, heard and understood her concerns.
Oxycodone dosing schedule was adjusted, pt now states her RLS is 'managed' and she feels good. She reports Tylenol is helping with hip pain. Pt seen resting in bed, calm, alert, cooperative, engaging, with full and appropriate affect. She denies
any SI, states she would not want to leave her dogs, has supports/connections. Pt denies feeling depressed.
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
Substance use Hx: past alcohol use, noted on previous psych consult 07/2020
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 Pt does [employer] and has dogs. She was planning a trip to [facility] with her cousins, which will have to be postponed
MSE: alert, oriented, calm, cooperative. Speech coherent/ thought goal-directed, clear. Mood good/stable, affect full and appropriate, able to laugh. Denies any SI. No signs of psychosis. Insight fair.
Imp: Mood appears stable, does not appear to be at risk for self-harm. Adjustment d/o with anxiety, due to issues around maintaining oxycodone for chronic RLS
Rec: Continue current management; no psychiatric intervention indicated. Psychiatry will sign off; please reconsult for any new concerns
[2025-05-23] MEDS: LANOXIN 125 MCG PO (12:39)
[2025-05-23 14:58] VITALS: BP 106/59
[2025-05-23] MEDS: MAGNESIUM OXIDE 400 MG PO (17:43)
[2025-05-23] MEDS: TOPROL XL 50 MG PO (17:44)
[2025-05-23] MEDS: VITAMIN D3 (cholecalciferol) 50 MCG PO (21:34)
[2025-05-23] MEDS: LIPITOR 40 MG PO (21:34)
[2025-05-23 23:00] VITALS: BP 127/72
[2025-05-24] MEDS: ROXICODONE 10 MG PO ×4 (00:03→18:02)
[2025-05-24] MEDS: ROXICODONE 5 MG PO (05:04)
[2025-05-24] MEDS: TYLENOL 1000 MG PO ×2 (05:05→13:36)
[2025-05-24 07:00] VITALS: BP 162/76
--- NOTE | 2025-05-24 07:39 | PTCARENOTE ---
Addendum entered by Supriya Chino RN 05/24/25 07:50:
903- RN answered call manley. Pt stating ' I need my clothes I want to leave'. RN explained that the doctor was notified and will round on pt. Pt stated ' I don't care'. RN asked pt if pt was agreeable to am assessment and medications. Pt stated ' i
don't care, the only med i want is the oxycodone'. RN explained that RN will return with oxycodone at its scheduled time. Care ongoing.
Original Note:
[id number]- RN answered call sindhu, pt upset stating wanting to leave and asking for clothing. Pt stating ' every person tells me a different story about the pain medication'. Merry Ramírez MD notified. Care ongoing at this time.
[2025-05-24] MEDS: VITAMIN B-12 2500 MCG PO (08:59)
[2025-05-24] MEDS: VITAMIN B-6 100 MG PO (08:59)
[2025-05-24] MEDS: PROTONIX 40 MG PO (08:59)
[2025-05-24] MEDS: COLACE 100 MG PO (08:59)
[2025-05-24] MEDS: OCUVITE SOFTGEL 1 CAP PO (08:59)
[2025-05-24] MEDS: SENOKOT 17.2 MG PO (08:59)
[2025-05-24] MEDS: ELIQUIS 5 MG PO (08:59)
[2025-05-24] MEDS: ASPIR LOW (ENTERIC COATED) 81 MG PO (08:59)
--- NOTE | 2025-05-24 11:27 | WOUNDNOTE ---
L LATERAL LOWER LEG
--- NOTE | 2025-05-24 11:30 | WOUNDNOTE ---
[facility] RN note: Patient admitted with
See H&P for complete history.
PMH: Past Medical History: Reports Other (osteoarthritis, hypertension, hyperlipidemia, multivessel CAD status post PCI of LAD, paroxysmal atrial fibrillation/atrial flutter on Eliquis, ischemic cardiomyopathy, HFpEF, mild to moderate mitral
regurgitation, mild tricuspid regurgitation, obstructive sleep apnea on CPAP, GERD, fatty liver dise)
Past Surgical History: Reports None
Wound Location and type/assessment: Patient admitted with: L femoral neck fracture s/p fall. Ortho managing post internal fixation with screws on 05/21, dressing in place. Asked to see patient for lateral lower leg full thickness ulcer/hematoma.
Covered with black eschar, small open area distal corner, scant serosanguineous fluid. Some softness under eschar and painful to touch. TT a picture to Dr. Chauhan. Using alexander wrap on L leg, 2+ edema and resolving bruising near knee. + palpable pedal
pulse L foot. Patient able to turn with minimal assist and ambulates to commode using walker. PT at bedside assisted getting patient back to bed. Sacrum and heels are intact, blanchable pink.
Appetite: Good.
Pressure redistribution devices in place: On Accumax, turns self and using air chair cushion. Pillow under legs.
Plan: Local wound care applied, will order Santyl for edges of wound. Alexander wrap knee high applied. Can be removed if not tolerating. Leg elevation when sitting. Recommended surgical consult.
Confirmed orders with hospitalist and updated nurse juarez. Updated care plan and will follow as needed.
Note to case management of equipment requested for discharge: VN for wound care.
Recommend follow up at wound care center upon discharge.
[2025-05-24 12:03] VITALS: BP 131/65
[2025-05-24] MEDS: LANOXIN 125 MCG PO (12:19)
--- NOTE | 2025-05-24 14:05 | W.PN.HOSP.TC ---
Today's Communication/Plan
-
Meds adjusted
Assessment / Plan
Assessment / Plan
80F w/HTN, HLD, CAD s/p PCI, paroxysmal afib/flutter on Eliquis, HFpEF, mild to moderate MR, recent fall c/b LLE hematoma, left femoral neck fracture. Patient stopped taking Eliquis 2 days ago.
Left femoral neck impacted fracture after a fall
- appreciate Ortho, s/p internal fixation left femoral neck 05/21
- Continue standing Tylenol for pain
- Oxycodone/Dilaudid PRN breakthrough pain (on standing Oxycodone for RLS - see below)
- PT/OT - SNF recommended
- [employer] Eliquis resumed
Recent hematoma of left lower extremity with wound
- Patient completed Keflex, no further antibiotics indicated
- wound care consulted
- will c/s surgery for eval for possible debridement
Opioid Dependence
Restless leg syndrome treated with Oxycodone
-patient is on Oxycodone 10mg at home. She reports that the q6H isn't frequent enough for day time. At home she takes q 5 hours to catch before symptoms begin then with a longer break overnight
-will schedule Oxycodone at 8AM, 1PM, 6PM and 11PM with additional PRN present if she requires oxycodone prior to the next 8 AM dosing.
HTN
BP controlled continue BB
Ischemic cardiomyopathy/HFpEF
Multivessel CAD
s/p PCI of LAD
Continue aspirin, statin
CHF compensated. Continue Bumex
Paroxysmal atrial fibrillation/atrial flutter
- Eliquis resumed
- Continue digoxin
- Continue metoprolol
Mild to moderate mitral regurgitation
Mild tricuspid regurgitation
Obstructive sleep apnea
On CPAP
GERD
omeprazole
Peripheral neuropathy
- Continue pramipexole, gabapentin,
Prediabetes
- Hold metformin, follow accuchecks
History of former alcohol use disorder
DVT prophylaxis� Eliquis
Anticipated Discharge: Within 24 hours
Subjective/Interval History
-
Date of Service: May 24, 2025
Patient states pain in her leg is better since having oxycodone on her home schedule. Circular conversation, patient perseverating on oxycodone scheduled.
Objective Data
-
Vital Signs:
Vital Signs
Temp Pulse Resp BP Pulse Ox
98.5 F 90 16 131/65 100
05/24/25 07:00 05/24/25 12:19 05/24/25 07:00 05/24/25 12:03 05/24/25 07:00
I&O
05/23/25 05/24/25 05/25/25
06:59 06:59 06:59
Intake Total 1450 / 1450 960 / 960 480 / 480
Output Total 260 / 260
Balance 1190 / 1190 960 / 960 480 / 480
Review of Systems
-
All other systems: Reviewed and negative
Physical Exam
-
General: No Apparent Distress
HEENT: Moist Mucous Membranes, Anicteric and PERRLA
Respiratory: Clear to Auscultation; Negative Wheezes, Rales or Rhonchi
Cardiac: Regular Rhythm and S1/S2; Negative Murmur, Rub or Gallop
GI: Soft, Nontender, Nondistended and Normal Bowel Sounds
Musculoskeletal: No Edema
Skin: Warm, Dry, Ulcers (reviewed photo of wound with dark eschar and surrounding erythema) and Lesions; Negative Rash
Neuro: Awake and AO x 3
Hematologic / Lymphatic: No Lymphadenopathy
Psych: Calm
Data Reviewed
-
Old Records: Reviewed
--- NOTE | 2025-05-24 15:15 | CM ---
Patient seen at bedside and [facility] has accepted patient per DON. IMM provided to patient for signature. CM provided documentation for transportation via ambulance. Patient report to be called to [phone]/fax [phone]. CM will continue to
follow for discharge planning needs.
Plan; transfer to SNF; pending physician assessment.
[2025-05-24 15:34] VITALS: BP 126/65
--- NOTE | 2025-05-24 15:53 | CON.GS ---
Addendum entered and electronically signed by Stewart Vickers MD 05/24/25 17:54:
I saw and examined the patient independently.
The Kaiako Kura Tuarua's note was reviewed and I agree with the note, assessment and plan except where noted below.
Comment: This is an 80-year-old female who presents with a traumatic left lower extremity wound in the setting of a left hip fracture status post recent repair. General surgery consulted for evaluation of her left lower extremity wound. Large
superficial eschar noted, expect this to slough off over time.
Agree with continuing Santyl and outpatient wound care in the wound care clinic.
Happy to see the patient as an outpatient as needed.
General surgery will sign off for now, please call with any questions or concerns.
Original Note:
Consultation
-
Date/Time Consultation Performed: 05/24/25 1630
Medical History
-
Chief Complaint: wound to LLE
History of Present Illness:
Ms Hernandez is an 80 yo female with a h/o Afib on Eliquis, CAD s/p PCI, HFpEF, RLS on chronic opioids initially presented on April 21 secondary to a mechanical fall and sustained a hematoma of the left leg with a wound with drainage. XR of the
lower leg was without fracture. She was treated with Keflex. She had continued pain to her LLE with development of left hip pain prompting an outpatient CT scan 2 days prior to admission which demonstrated a left femoral neck fracture. She is now
POD #3 internal fixation of the left femur and is being followed by Pt/Ot with plans for rehab on discharge on the medicine service for management of her chronic conditions. She is seen today by general surgery for evaluation of the wound to the
left lower anterior leg at site of prior hematoma. The area is covered with eschar tissue without further bleeding noted. Anticoagulation has been resumed. She is being followed by wound care currently with plans for follow up in the OP wound
center. The area is tender to touch but otherwise denies pain.
Past Medical History
Past Medical History: Arrhythmias (afib/flutter on eliquis), CAD, CHF (HFpEF, ischemic CM), GERD, HTN, Hypercholesterolemia, Valvular Disease (mild to mod MV regurg) and Other ([place] on CPAP, RLS, OAB, chronic opioids, atty liver disease, left renal
cyst, migraines, vertigo, peripheral neuropathy, restless leg syndrome, multilevel degenerative disease)
Past Surgical History: Cardiac (PCI to LAD) and Orthopedic (05/21/25 internal fixation left femoral neck)
Social History
Tobacco: Non-Smoker
Alcohol: Former
Family History
Family History: Reviewed & Not Pertinent
Allergies / Home Medications
Allergy/AdvReac Type Severity Reaction Status Date / Time
adhesive Allergy itching Verified 05/21/25 11:43
and
swelling
amlodipine (From Norvasc) Allergy Ankle Verified 05/21/25 11:43
Swelling
bacitracin (From Neosporin Allergy Swelling, Verified 05/21/25 11:43
([id number])) Itching,
Redness
empagliflozin (From Allergy Hard Verified 05/21/25 11:43
Jardiance) Swelling
lisinopril Allergy Rash Verified 05/21/25 11:43
neomycin (From Neosporin Allergy Swelling, Verified 05/21/25 11:43
([id number])) Itching,
Redness
polymyxin B (From Neosporin Allergy Swelling, Verified 05/21/25 11:43
([id number])) Itching,
Redness
Sulfa (Sulfonamide Allergy Swelling, Verified 05/21/25 11:43
Antibiotics) Itching,
Redness
�Medication �Instructions �Recorded �Confirmed �Type
vit C 250 mg-vit E 90 mg-zinc 40 1 cap PO BID Supplement 04/03/17 05/21/25 History
mg-copper 1 [id number]
capsule (PreserVision AREDS-2)
atorvastatin 40 mg tablet 40 mg PO HS High cholesterol 02/25/20 05/21/25 History
cholecalciferol (vitamin D3) 25 2,000 units PO HS Supplement/Bone 02/25/20 05/21/25 History
mcg (1,000 unit) tablet health
cyanocobalamin (vitamin B-12) 2,500 mcg PO DAILY Supplement 08/16/20 05/21/25 History
1,000 mcg tablet
aspirin 81 mg tablet,delayed 81 mg PO DAILY Blood clot 11/26/21 05/21/25 History
release prevention/tx
omeprazole magnesium 20 mg 20 mg PO DAILY Gastrointestinal 11/26/21 05/21/25 History
tablet,delayed release (Prilosec issue
OTC)
magnesium 200 mg tablet 400 mg PO QPM Supplement 04/11/23 05/21/25 History
pyridoxine (vitamin B6) 100 mg 100 mg PO DAILY Supplement 04/11/23 05/21/25 History
tablet (Vitamin B-6)
apixaban 5 mg tablet (Eliquis) 5 mg PO BID Blood Clot 05/21/25 05/21/25 History
Prevention/Tx
bumetanide 0.5 mg tablet 1 mg PO DAILY PRN edema 05/21/25 05/21/25 History
cetirizine 10 mg tablet (Zyrtec) 10 mg PO DAILY PRN 05/21/25 05/21/25 History
itching/allergies
digoxin 125 mcg (0.125 mg) tablet 125 mcg PO DAILY 05/21/25 05/21/25 History
metformin 500 mg tablet 500 mg PO QPM Diabetes 05/21/25 05/21/25 History
sennosides 8.6 mg tablet (Senna 17.2 mg PO DAILY 05/21/25 05/21/25 History
Lax)
acetaminophen 500 mg tablet 1,000 mg (2 x 500 mg) PO Q8H #0 05/24/25 Rx
(Tylenol Extra Strength) tabs
collagenase clostridium histo. 250 1 applic topical DAILY Skin issues 05/24/25 Rx
unit/gram topical ointment (Santyl) #0 grams
docusate sodium 100 mg capsule 100 mg PO BID #0 caps 12/01/25 Rx
metoprolol succinate 50 mg 50 mg PO QPM #0 tabs 05/24/25 Rx
tablet,extended release 24 hr
oxycodone 10 mg tablet 10 mg PO QID@0800,1300,1800,2300 05/24/25 Rx
#8 tabs
oxycodone 5 mg tablet 5 mg PO Q4HPRN PRN moderate pain/ 05/24/25 Rx
unrelieved RLS #5 tabs
Review of Systems
-
History Source: Patient
All other systems: Negative unless noted
A 10 point review of systems was completed, and was negative except as per HPI.
Physical Exam
Vital Signs
Temp Pulse Resp BP Pulse Ox
97.6 F 79 16 126/65 98
05/24/25 15:34 05/24/25 15:34 05/24/25 15:34 05/24/25 15:34 05/24/25 15:34
Lab Results
05/22/25 07:04
05/22/25 07:04
WBC 9.5 10^3/uL (4.8-10.8) 05/22/25 07:04
Hgb 10.1 g/dL (12.0-16.0) L 05/22/25 07:04
Hct 31.9 % (37.0-47.0) L 05/22/25 07:04
Plt Count 324 10^3/uL (130-400) 05/22/25 07:04
Abs Immat Gran (auto) 0.0 10^3/uL (0-0.05) 05/22/25 07:04
Neutrophils % 87.5 % (42.2-75.2) H 05/22/25 07:04
Physical Exam
General: Well Developed and Well Nourished
HEENT: Normocephalic and Moist Mucous Membranes
Respiratory: Non Labored Respirations
GI: Soft
Skin: Warm, Dry and Other (left lower anterior leg with large wound with overlying eschar. No purulence or erythema. )
Neuro: Awake, Alert and AO x 3
Psych: Calm
Data Reviewed
-
Radiology: Image Personally Visualized and interpreted, Report Reviewed by me, Discussed with Physician, Discussed with Nurse and Discussed with Patient
Labs: Labs Reviewed by me, Discussed with Physician, Discussed with Nurse and Discussed with Patient
Old Records: Reviewed
Assessment / Plan
-
Ms Hernandez is an 80 yo female with a h/o Afib on Eliquis, CAD s/p PCI, HFpEF, RLS on chronic opioids initially presented on April 21 secondary to a mechanical fall and sustained a hematoma of the left leg with a wound with drainage. XR of the
lower leg was without fracture. She was treated with Keflex. She had continued pain to her LLE with development of left hip pain prompting an outpatient CT scan 2 days prior to admission which demonstrated a left femoral neck fracture. She is now
POD #3 internal fixation of the left femur and is being followed by Pt/Ot with plans for rehab on discharge on the medicine service for management of her chronic conditions.
She is seen today by general surgery for evaluation of the wound to the left lower anterior leg at site of prior hematoma. The area is covered with eschar tissue without further bleeding noted. Anticoagulation has been resumed. She is being followed
by wound care currently with plans for follow up in the OP wound center. Left lower anterior leg with noted large but shallow wound with overlying eschar. No purulence or erythema. No continued bleeding. Scant ssf on dressing. Expected tenderness.
Plan:
Agree with wound care recs for santyl and dressing changes, ok to remove dressing for showers
The wound is without evidence of purulence/infection. Would allow the necrotic tissue to flake off on its own rather than creating a large open wound by debriding the site surgically
Would recommend close follow up in the wound care center
No plans for surgery at this time, will follow peripherally please call with questions/concerns
--- NOTE | 2025-05-24 18:01 | PTCARENOTE ---
Pts home medications returned to pt prior to discharge. care ongoing.
[2025-05-24] MEDS: MAGNESIUM OXIDE 400 MG PO (18:02)
[2025-05-24] MEDS: TOPROL XL 50 MG PO (18:02)
== END 2025-05-24 19:12 | DRG 481 ==
LOC: 2 SOUTH 16:08
PROVIDERS: Nurse Practitioner; Student in an Organized Health Care Education/Training Program; ADMITTING PHYSICIAN Hospitalist; ATTENDING PHYSICIAN Internal Medicine; EMERGENCY PHYSICIAN Emergency Medicine; FAMILY PHYSICIAN Family Medicine; OTHER PHYSICIAN Psychiatry & Neurology Psychiatry; OTHER PHYSICIAN Surgery
PROC: 0QH704Z Insertion of Internal Fixation Device into Left Upper Femur, Open Approach (ICD-10-PCS; 2025-05-21)
DX: S72.002A Fracture of unspecified part of neck of left femur, initial encounter for closed fracture (principal); F11.20 Opioid dependence, uncomplicated; F19.20 Other psychoactive substance dependence, uncomplicated; I50.32 Chronic diastolic (congestive) heart failure; Z79.01 Long term (current) use of anticoagulants; I48.91 Unspecified atrial fibrillation; F43.22 Adjustment disorder with anxiety; G25.81 Restless legs syndrome; S80.12XA Contusion of left lower leg, initial encounter; I11.0 Hypertensive heart disease with heart failure; I48.0 Paroxysmal atrial fibrillation; K21.9 Gastro-esophageal reflux disease without esophagitis; W19.XXXA Unspecified fall, initial encounter; Z79.82 Long term (current) use of aspirin
CPT/HCPCS: 73502; 73564; 73600; 73700; 76000; 80053; 82306; 82962; 85025; 85610; 85730; 86850; 86900; 86901; 93005; 96361; 96374; 97116; 97162; 97166; 97530; 97535; 99285; C1713; C1769

== ENCOUNTER → 2025-05-26 11:43 | Outpatient (REF) | payer OTHER, MEDICARE, SELFPAY ==
[2025-05-26 12:17] LABS: Hematocrit 31.1 % (37.0-47.0); Hemoglobin 9.5 g/dL (12.0-16.0); Mean Corp Hgb Conc. 30.5 g/dL (33.0-37.0); Mean Corpuscular Volume 94.2 fL (81.0-99.0); Platelet Count 270 10^3/uL (130-400); Red Cell Dist. Width 14.6 % (11.5-14.5)
[2025-05-26 12:54] LABS: Blood Urea Nitrogen 15 mg/dl (7-17); Calcium 8.9 mg/dl (8.4-10.2); Carbon Dioxide 30 mmol/L (22-30); Chloride 99 mmol/L (98-107); Glucose 107 mg/dl (70-99); Potassium 4.9 mmol/L (3.5-5.1); Sodium 132 mmol/L (135-145); eGFR > 60.00
== END ==
LOC: OLABP 11:43
PROVIDERS: ATTENDING PHYSICIAN Family Medicine
DX: S72.002D Fracture of unspecified part of neck of left femur, subsequent encounter for closed fracture with routine healing (principal); E66.9 Obesity, unspecified; E78.5 Hyperlipidemia, unspecified; F11.20 Opioid dependence, uncomplicated; G25.81 Restless legs syndrome; G47.33 Obstructive sleep apnea (adult) (pediatric); G62.9 Polyneuropathy, unspecified; I10 Essential (primary) hypertension; I25.10 Atherosclerotic heart disease of native coronary artery without angina pectoris; I25.5 Ischemic cardiomyopathy; I48.0 Paroxysmal atrial fibrillation; I50.30 Unspecified diastolic (congestive) heart failure
CPT/HCPCS: 36415; 80048; 85027

== ENCOUNTER → 2025-06-02 10:07 | Outpatient (REF) | payer OTHER, MEDICARE, SELFPAY ==
[2025-06-02 10:48] LABS: Blood Urea Nitrogen 18 mg/dl (7-17); Calcium 9.0 mg/dl (8.4-10.2); Carbon Dioxide 31 mmol/L (22-30); Chloride 98 mmol/L (98-107); Glucose 97 mg/dl (70-99); Potassium 5.0 mmol/L (3.5-5.1); Sodium 134 mmol/L (135-145); eGFR > 60.00
[2025-06-02 11:15] LABS: Hematocrit 32.0 % (37.0-47.0); Hemoglobin 10.0 g/dL (12.0-16.0); Mean Corp Hgb Conc. 31.3 g/dL (33.0-37.0); Mean Corpuscular Volume 97.9 fL (81.0-99.0); Nucleated Red Blood Cells % 0 %; Platelet Count 300 10^3/uL (130-400); Red Cell Dist. Width 15.4 % (11.5-14.5)
== END ==
LOC: OLABP 10:07
PROVIDERS: ATTENDING PHYSICIAN Family Medicine
DX: I10 Essential (primary) hypertension (principal); I25.10 Atherosclerotic heart disease of native coronary artery without angina pectoris; I25.5 Ischemic cardiomyopathy; I48.0 Paroxysmal atrial fibrillation; I50.30 Unspecified diastolic (congestive) heart failure; N21.9 Calculus of lower urinary tract, unspecified; S80.12XD Contusion of left lower leg, subsequent encounter; E66.9 Obesity, unspecified
CPT/HCPCS: 36415; 80048; 85025

== ENCOUNTER 2025-06-12 04:13 | Emergency (ER) | payer MEDICARE, OTHER, SELFPAY ==
[2025-06-12 04:19] VITALS: BP 118/67
[2025-06-12 04:25] VITALS: BP 118/67
--- NOTE | 2025-06-12 04:31 | ED.GENMED ---
History of Present Illness
General
Chief Complaint: Wound Check/Suture Removal
Source: patient and ambulance crew
Exam Limitations: none
Time Seen by Provider: 06/12/25 04:29
Nursing documentation reviewed up to this point in time: agreed with
History of Present Illness
History of Present Illness:
80-year-old female with a past medical history as noted presents to the ER from home for evaluation of bleeding from a leg wound. Patient had a fall in April and fractured her left hip and had it repaired here at [place]. As part of the fall
she also sustained a hematoma to the left lower leg that ultimately burst and caused a wound on the lateral left lower leg. She has been receiving wound care with nurses and is supposed to see wound care physician on 06/18. Tonight she says she
got up to go to the bathroom�she says that she had to sanders to the toilet to pee and accidentally began leaking on her close before getting to the toilet. She ultimately sat down to finish peeing and when she looked down she noticed that her wound
had bled onto the ground a few drops. She says that she then got up off of the toilet and walked to go change her close and noticed that she was dripping blood from her leg wound. Called EMS to bring her to the hospital for assessment. She denies
any other acute complaints. She thinks she may have hit her wound in her sanders to get to the bathroom. She is notably on Eliquis with a history of A-fib.
Past History
Past History
ED Past Medical History: Arrthythmia, CAD, CHF, GERD, HTN and Hypercholesterolemia
ED Past Surgical History: Cardiac
Social History
Tobacco: Non-smoker
Alcohol: Daily
Personal: Single
Living: alone
Employment: Retired
Family History
Family History: Hypertension
Review of Systems
Review of Systems
All Other Systems: ROS reviewed and negative except as documented in HPI and ROS
Skin: Reports other (Bleeding from wound)
Phy Exam
Physical Exam
Physical Exam:
General: Well appearing and non-toxic
HEENT: protecting airway, head normocephalic and atraumatic
Neck: appears supple
CV: No evidence of cyanosis
Resp: No accessory muscle use
Abd: Non-distended
Extremities: No deformities
Neuro: Alert
Psych: Normal affect
Skin: On exam of the left lower extremity patient initially had bloodsoaked dressing on the left lower leg; on taking dressing down she was noted to have a large wound approximately 10 x 6 cm on the lateral lower leg with a large central eschar and
a rim of granulation tissue; there is some slow venous oozing from the margin of the wound; she also has various other more superficial wounds in the area without active bleeding or signs of infection
Scores
Heart Failure Risk
Heart Failure Risk Score: Not Applicable
Heart Score for Chest Pain Patients
STEMI patient?: Not applicable
Withdrawal Assessment of Alcohol
Withdrawal Assessment Completed?: Not applicable
Course
Orders/Labs/Results
Orders:
Orders
06/12/25 04:40
Basic Metabolic Panel Urgent
Complete Blood Count/No Diff Urgent
Abnormal Lab Results
06/12/25
04:40
RBC 3.67 L 10^6/uL
(4.20-5.40)
Hgb 10.7 L g/dL
(12.0-16.0)
Hct 33.7 L %
(37.0-47.0)
MCHC 31.8 L g/dL
(33.0-37.0)
RDW 15.1 H %
(11.5-14.5)
Sodium 132 L mmol/L
(135-145)
Chloride 95 L mmol/L
(98-107)
Carbon Dioxide 32 H mmol/L
(22-30)
BUN 18 H mg/dl
(7-17)
Glucose 121 H mg/dl
(70-99)
06/12/25 04:40
06/12/25 04:40
Vital Signs
Initial and Last Documented VS:
Initial Vital Signs
Pulse Resp Pulse Ox
94 19 97
06/12/25 04:17 06/12/25 04:17 06/12/25 04:17
Last Documented Vital Signs
Temp Pulse Resp BP Pulse Ox
36.7 C 84 21 118/67 98
06/12/25 04:25 06/12/25 04:25 06/12/25 04:25 06/12/25 04:25 06/12/25 04:38
MDM/Problems Addressed
Differential Diagnosis Includes:
Bleeding wound
MDM/Problems Addressed:
80-year-old female presents with bleeding from a wound on her left lower leg as described above. Vitals and exam are as above. She did have bloodsoaked dressing and wound was oozing blood but hemostasis achieved after applying direct pressure.
Clean dressing applied. Will check basic labs to ensure stable hemoglobin. Can likely be discharged if she remains hemostatic; she does not have signs of active infection at this point however I do suspect she will need debridement of the wound at
some point�she does have a large central eschar. She has a wound care appointment scheduled for 06/18.
Labs reviewed, hemoglobin is stable. Wound hemostatic on ER observation. Stable for discharge home.
Chronic conditions affecting care:
A-fib on Eliquis complicates bleeding
*Pulse Oximetry
SaO2: 98
Patient hypoxic: no (98%)
*Critical Care Note
Total Time (30-74mins, 75-104mins- exclusive of procedures): Not Applicable
Data Reviewed
Source: patient, records and ambulance crew
ED Attending Note
-
Portions of this chart may have been created with voice recognition software.� Occasional wrong word or��sound alike� substitutions may have occurred due to the inherent limitations of voice recognition software.
Discharge Plan
Departure
Patient Disposition: Home (Routine Discharge)
Date of Disposition: 06/12/25
Time of Disposition: 05:33
Patient with high blood pressure during this ER visit?: No
Discharge Problem:
Bleeding from wound
Instructions: Wound Care (DC)
Prescriptions:
No Action
PreserVision AREDS-2 1 EACH capsule
1 cap PO BID
atorvastatin 40 MG tablet
40 mg PO HS
cholecalciferol (vitamin D3) 1,000 UNITS tablet
2,000 units PO HS
cyanocobalamin (vitamin B-12) 1,000 MCG tablet
2,500 mcg PO DAILY
aspirin 81 MG tablet,delayed release (DR/EC)
81 mg PO DAILY
omeprazole magnesium [Prilosec OTC] 20 MG tablet,delayed release (DR/EC)
20 mg PO DAILY
pyridoxine (vitamin B6) [Vitamin B-6] 100 mg Tablet
100 mg PO DAILY
magnesium 200 mg Tablet
400 mg PO QPM
metformin 500 mg tablet
500 mg PO QPM
digoxin 125 mcg (0.125 mg) tablet
125 mcg PO DAILY
Eliquis 5 mg tablet
5 mg PO BID
sennosides [Senna Lax] 8.6 mg tablet
17.2 mg PO DAILY
bumetanide 0.5 mg tablet
1 mg PO DAILY PRN (Reason: edema)
cetirizine [Zyrtec] 10 mg Tablet
10 mg PO DAILY PRN (Reason: itching/allergies)
docusate sodium 100 mg Capsule
100 mg PO BID Qty: 0 0RF
metoprolol succinate 50 mg Tablet Extended Release 24 Hr
50 mg PO QPM Qty: 0 0RF
acetaminophen [Tylenol Extra Strength] 500 mg Tablet
1,000 mg PO Q8H Qty: 0 0RF
Santyl 250 unit/gram Ointment
1 applic topical DAILY Qty: 0 0RF
oxycodone 5 mg Tablet
5 mg PO Q4HPRN PRN (Reason: moderate pain/ unrelieved RLS) Qty: 5 0RF
oxycodone 10 mg Tablet
10 mg PO QID@0800,1300,1800,2300 Qty: 8 0RF
Activity Restrictions/Additional Instructions:
You should follow-up with the wound care physician on 06/18 as scheduled. You should continue to see the wound nurses for regular dressing changes. If you have any issues return to the ER for reassessment.
Interventions
Interventions:
*General Assessment Last Done: 06/12/25 04:25
*Neglect/Abuse Screening Last Done: 06/12/25 04:25
*ED COVID-19 Vaccine History Last Done: 06/12/25 04:25
*ED Influenza Vaccine History Last Done: 06/12/25 04:25
[facility] Risk Assessment Tool Last Done: 06/12/25 04:45
*Risk Screen - Suicide (C-SSRS) Last Done: 06/12/25 04:25
ED-Skin Assessment Last Done: 06/12/25 04:51
Discharge Date and Time
Print Language: FRENCH
[2025-06-12 04:39] VITALS: BMI 26.6
[2025-06-12 05:00] VITALS: BP 111/67
[2025-06-12 05:15] LABS: Blood Urea Nitrogen 18 mg/dl (7-17); Calcium 9.9 mg/dl (8.4-10.2); Carbon Dioxide 32 mmol/L (22-30); Chloride 95 mmol/L (98-107); Estimated Creatinine Clearance 54 ml/min; Glucose 121 mg/dl (70-99); Potassium 4.4 mmol/L (3.5-5.1); Sodium 132 mmol/L (135-145); eGFR > 60.00
[2025-06-12 05:31] LABS: Hematocrit 33.7 % (37.0-47.0); Hemoglobin 10.7 g/dL (12.0-16.0); Mean Corp Hgb Conc. 31.8 g/dL (33.0-37.0); Mean Corpuscular Volume 91.8 fL (81.0-99.0); Platelet Count 335 10^3/uL (130-400); Red Cell Dist. Width 15.1 % (11.5-14.5)
[2025-06-12 06:00] VITALS: BP 128/82
== END 2025-06-12 07:40 | disposition home or self-care (01) ==
LOC: EMR 04:13
PROVIDERS: EMERGENCY PHYSICIAN Emergency Medicine; FAMILY PHYSICIAN Family Medicine
DX: S81.802A Unspecified open wound, left lower leg, initial encounter (principal); R58 Hemorrhage, not elsewhere classified; W19.XXXA Unspecified fall, initial encounter; I25.10 Atherosclerotic heart disease of native coronary artery without angina pectoris; I48.91 Unspecified atrial fibrillation; I11.0 Hypertensive heart disease with heart failure; I50.9 Heart failure, unspecified; E78.00 Pure hypercholesterolemia, unspecified; K21.9 Gastro-esophageal reflux disease without esophagitis; Z79.01 Long term (current) use of anticoagulants; Z82.49 Family history of ischemic heart disease and other diseases of the circulatory system
CPT/HCPCS: 99283; 80048; 85027

== ENCOUNTER 2025-06-21 13:05 | Emergency (ER) | payer MEDICARE, OTHER, SELFPAY ==
[2025-06-21 13:15] VITALS: BP 112/64
[2025-06-21 14:46] LABS: Hematocrit 33.1 % (37.0-47.0); Hemoglobin 10.3 g/dL (12.0-16.0); Mean Corp Hgb Conc. 31.1 g/dL (33.0-37.0); Mean Corpuscular Volume 93.0 fL (81.0-99.0); Nucleated Red Blood Cells % 0 %; Platelet Count 259 10^3/uL (130-400); Red Cell Dist. Width 14.2 % (11.5-14.5)
[2025-06-21 14:52] LABS: Blood Urea Nitrogen 21 mg/dl (7-17); Calcium 8.9 mg/dl (8.4-10.2); Carbon Dioxide 29 mmol/L (22-30); Chloride 98 mmol/L (98-107); Glucose 112 mg/dl (70-99); Potassium 4.2 mmol/L (3.5-5.1); Sodium 132 mmol/L (135-145); eGFR > 60.00
--- NOTE | 2025-06-21 16:06 | ED.GENMED ---
History of Present Illness
General
Chief Complaint: DVT/Possible Blood Clot
Source: patient
Exam Limitations: none
Time Seen by Provider: 06/21/25 14:03
Nursing documentation reviewed up to this point in time: agreed with
History of Present Illness
History of Present Illness:
Patient is an 80-year-old female with history of atrial fibrillation on Eliquis, CHF, hypertension who presents to the emergency department with lower extremity swelling. Patient states she had an US performed of her left leg at home on Monday 06/18
by a mobile service and was contacted today stating that she had blood clots and required evaluation in the emergency department. US was initially ordered by her visiting wound care nurse.
She denies any obvious worsening of swelling, redness, or pain in left lower extremity. No chest pain or shortness of breath. She has been able to ambulate with walker.
Patient is followed by wound care for non-healing wounds of left lower leg. She sustained a fall which led to both a left hip fracture (which was surgically fixed) and hematoma which ultimately ended up rupturing leading to large wounds. She was
recently discharged from an acute rehab facility.
Patient takes eliquis BID and ASA 81.
Past History
Past History
ED Past Medical History: Arrthythmia, CAD, CHF, GERD, HTN and Hypercholesterolemia
ED Past Surgical History: Cardiac
Social History
Tobacco: Non-smoker
Alcohol: Daily
Personal: Single
Living: alone
Employment: Retired
Family History
Family History: Hypertension
Review of Systems
Review of Systems
Allergies reviewed?: Yes
All Other Systems: ROS reviewed and negative except as documented in HPI and ROS
Phy Exam
Physical Exam
Physical Exam:
Vitals: Patient's vital signs are stable. Afebrile
General: Patient appears in no distress.
Skin: Wounds to left lower leg at lateral aspect with surrounding erythema
Head: Normocephalic, atraumatic
Eyes: Sclera nonicteric.
Throat: Protecting airway
Neck: Normal ROM, no cervical spine tenderness, no meningismus
Cardiac: Regular rate, irregularly irregular rhythm, no murmurs.
Pulm: Normal respiratory effort. Lungs clear
Abdomen: No abdominal tenderness.
Extremities: Pitting edema of bilateral lower extremities L>R. Generalized erythema and healing wounds to left lower extremity without purulent drainage or lymphangitic streaking. 2+ palpable DP pulses bilaterally.
Neuro: AAOx3. Grossly intact.
Psychiatric: Normal affect.
Course
Orders/Labs/Results
Orders:
Orders
06/21/25 14:18
US Periph Venous LOWER Ext Gustavo Urgent
Comment: recent left hip fracture
Reason For Exam: lower extremity swelling
06/21/25 14:22
Basic Metabolic Panel Urgent
Complete Blood Count/With Diff Urgent
06/21/25 17:00
Acetaminophen [Tylenol] 1,000 mg PO NOW STA
Abnormal Lab Results
06/21/25
14:22
RBC 3.56 L 10^6/uL
(4.20-5.40)
Hgb 10.3 L g/dL
(12.0-16.0)
Hct 33.1 L %
(37.0-47.0)
MCHC 31.1 L g/dL
(33.0-37.0)
Absolute Monos (auto) 1.0 H 10^3/uL
(0.1-0.6)
Lymphocytes % 15.3 L %
(20.5-51.1)
Monocytes % 12.9 H %
(1.7-9.3)
Sodium 132 L mmol/L
(135-145)
BUN 21 H mg/dl
(7-17)
Glucose 112 H mg/dl
(70-99)
06/21/25 14:22
06/21/25 14:22
Vital Signs
Initial and Last Documented VS:
Initial Vital Signs
Temp Pulse Resp BP Pulse Ox
97.6 F 91 20 112/64 98
06/21/25 13:15 06/21/25 13:15 06/21/25 13:15 06/21/25 13:15 06/21/25 13:15
Last Documented Vital Signs
Temp Pulse Resp BP Pulse Ox
97.6 F 78 18 122/76 99
06/21/25 13:15 06/21/25 16:31 06/21/25 16:31 06/21/25 16:31 06/21/25 16:31
MDM/Problems Addressed
Differential Diagnosis Includes:
Not limited to: DVT, cellulitis, venous stasis, dependent edema, lymphedema, CHF, etc
MDM/Problems Addressed:
80-year-old female with history as documented significant for atrial fibrillation anticoagulated on Eliquis presenting with concern of left lower extremity DVT. Patient with wound to left lower extremity following fall approximately 1 month ago as
described above. Mobile ultrasound revealed evidence of clot prompting referral to emergency department. Patient denies any notable recent increase in swelling or pain in left lower extremity. No fever or chills. No pain or shortness of breath.
She does report compliance with Eliquis. Vitals and physical exam as above. She appears in no distress. There is pitting edema of bilateral lower extremities L>R. wounds on left lower leg appear to be healing without any superimposed infection.
Patient does not have copy of radiology report from reported positive DVT study. Will obtain ultrasound of lower extremities and check labs.
Update: Interestingly, ultrasound of bilateral lower extremities today show no evidence of DVT. I did contact patient's wound care nurse who was able to fax report from study performed on 06/18 which reveals 'positive thrombosis of middle and distal
superficial femoral vein as well as popliteal vein and proximal calf veins'. Of note�patient's wound care nurse also did state that her wounds appear to be healing well Without evidence of infection.
I contacted the radiologist who read our study today and discussed findings from Saturday. he looked at images once again I does not see any evidence of DVT. Despite notation that study was somewhat limited due to overlying bandage she states that
he is adequately seeing areas of concern from previous ultrasound on Saturday. Given conflicting studies, I did reach out to vascular surgery on-call. given patient is currently anticoagulated on Eliquis that she feels she is stable for discharge
home on current dose of Eliquis.
Patient is able to ambulate with walker. She is comfortable discharge home. Did advise repeat ultrasound in 1-2 weeks for reevaluation. She will continue to follow with wound care and primary care. Strict return precautions discussed.
Chronic conditions affecting care:
Atrial fibrillation on Eliquis, recent left hip fracture
Acute Exacerbation and/or Progression of Chronic Illness:
N/A
*Radiology
Radiology exam reviewed: radiology read reviewed
*Pulse Oximetry
SaO2: 98
Oxygen Mode of Delivery: Room air
Patient hypoxic: no
*EKG
Interpreted by ED Provider?: NA
*Helper Coordinator Interpretation
Rate: Helper Coordinator- N/A
*Critical Care Note
Total Time (30-74mins, 75-104mins- exclusive of procedures): Not Applicable
Data Reviewed
Review of Other/Old Records Reveals: Radiology Studies (Reviewed outpatient venous duplex US of LLE performed on 06/18/25)
Patient Management
Discussion with other providers: [place] Attendant (Case discussed with vascular surgery) and Radiologist
ED Attending Note
-
Portions of this chart may have been created with voice recognition software.� Occasional wrong word or��sound alike� substitutions may have occurred due to the inherent limitations of voice recognition software.
Discharge Plan
Departure
Patient Disposition: Home (Routine Discharge)
Date of Disposition: 06/21/25
Time of Disposition: 17:55
Patient with high blood pressure during this ER visit?: No
Condition: Good
Discharge Problem:
Swelling of both lower extremities
Prescriptions:
No Action
PreserVision AREDS-2 1 EACH capsule
1 cap PO BID
atorvastatin 40 MG tablet
40 mg PO HS
cholecalciferol (vitamin D3) 1,000 UNITS tablet
2,000 units PO HS
cyanocobalamin (vitamin B-12) 1,000 MCG tablet
2,500 mcg PO DAILY
aspirin 81 MG tablet,delayed release (DR/EC)
81 mg PO DAILY
omeprazole magnesium [Prilosec OTC] 20 MG tablet,delayed release (DR/EC)
20 mg PO DAILY
pyridoxine (vitamin B6) [Vitamin B-6] 100 mg Tablet
100 mg PO DAILY
magnesium 200 mg Tablet
400 mg PO QPM
metformin 500 mg tablet
500 mg PO QPM
digoxin 125 mcg (0.125 mg) tablet
125 mcg PO DAILY
Eliquis 5 mg tablet
5 mg PO BID
sennosides [Senna Lax] 8.6 mg tablet
17.2 mg PO DAILY
bumetanide 0.5 mg tablet
1 mg PO DAILY PRN (Reason: edema)
cetirizine [Zyrtec] 10 mg Tablet
10 mg PO DAILY PRN (Reason: itching/allergies)
docusate sodium 100 mg Capsule
100 mg PO BID Qty: 0 0RF
metoprolol succinate 50 mg Tablet Extended Release 24 Hr
50 mg PO QPM Qty: 0 0RF
acetaminophen [Tylenol Extra Strength] 500 mg Tablet
1,000 mg PO Q8H Qty: 0 0RF
Santyl 250 unit/gram Ointment
1 applic topical DAILY Qty: 0 0RF
oxycodone 5 mg Tablet
5 mg PO Q4HPRN PRN (Reason: moderate pain/ unrelieved RLS) Qty: 5 0RF
oxycodone 10 mg Tablet
10 mg PO QID@0800,1300,1800,2300 Qty: 8 0RF
Referrals:
Luis Daniel Watt Jr., DO [Family Provider, Internal Medicine] - Follow up in 5-7 days
Activity Restrictions/Additional Instructions:
RETURN TO THE EMERGENCY DEPARTMENT WITH ANY FEVER, CHILLS, WORSENING PAIN, SWELLING, REDNESS OF LOWER EXTREMITIES, CHEST PAIN OR SHORTNESS OF BREATH, WORSENING IN CURRENT SYMPTOMS, OR ANY OTHER CONCERNS
- As discussed�your ultrasound performed today in the emergency department showed no evidence of a blood clot in your left lower extremity.
- Please continue to take your Eliquis twice daily as prescribed. Continue to follow with wound care for management of lower extremity wounds.
- Follow-up with your primary care provider in 7-10 days for repeat ultrasound of lower extremities.
Monitor your symptoms closely and return to the emergency department with any acute worsening/new symptoms or any other concerns
Interventions
Interventions:
*General Assessment Last Done: 06/21/25 14:31
*Neglect/Abuse Screening Last Done: 06/21/25 15:53
*ED COVID-19 Vaccine History Last Done: 06/21/25 13:15
*ED Influenza Vaccine History Last Done: 06/21/25 13:15
*Risk Screen - Suicide (C-SSRS) Last Done: 06/21/25 13:15
*Nursing Disposition Last Done: 06/21/25 18:09
ED- Pulmonary Assessment Last Done: 06/21/25 14:31
ED-Skin Assessment Last Done: 06/21/25 14:30
Discharge Date and Time
Discharge Date/Time: 06/21/25 18:10
Print Language: ROMANIAN
[2025-06-21 16:31] VITALS: BP 122/76
[2025-06-21] MEDS: TYLENOL 1000 MG PO (17:03)
== END 2025-06-21 18:10 | disposition home or self-care (01) ==
LOC: EMR 13:05
PROVIDERS: Physician Assistant; EMERGENCY PHYSICIAN Emergency Medicine; FAMILY PHYSICIAN Family Medicine
DX: R60.0 Localized edema (principal); I48.91 Unspecified atrial fibrillation; I11.0 Hypertensive heart disease with heart failure; I50.9 Heart failure, unspecified; K21.9 Gastro-esophageal reflux disease without esophagitis; E78.00 Pure hypercholesterolemia, unspecified; I25.10 Atherosclerotic heart disease of native coronary artery without angina pectoris; F32.A Depression, unspecified; H35.30 Unspecified macular degeneration; G47.30 Sleep apnea, unspecified; M19.90 Unspecified osteoarthritis, unspecified site; I48.92 Unspecified atrial flutter; Z79.01 Long term (current) use of anticoagulants; Z85.820 Personal history of malignant melanoma of skin; Z87.891 Personal history of nicotine dependence; Z90.49 Acquired absence of other specified parts of digestive tract; Z91.81 History of falling; Z88.1 Allergy status to other antibiotic agents; Z88.2 Allergy status to sulfonamides; Z88.8 Allergy status to other drugs, medicaments and biological substances; Z91.048 Other nonmedicinal substance allergy status
CPT/HCPCS: 99284; 80048; 85025; 93970